=== PATIENT | female | born 1995 | race Caucasian/White ===

== ENCOUNTER 2022-04-09 09:53 | Outpatient (CLI) | payer BC, SELFPAY ==
[2022-04-10 13:43] LABS: Strep B DNA Probe NEGATIVE (Negative)
== END 2022-04-09 09:54 | disposition home or self-care (01) ==
PROVIDERS: Visit Provider Obstetrics & Gynecology
DX: O09.893 Supervision of other high risk pregnancies, third trimester (principal); Z3A.36 36 weeks gestation of pregnancy
CPT/HCPCS: 87081; 87653

== ENCOUNTER 2022-04-23 09:30 | Outpatient (CLI) | payer BC, SELFPAY ==
[2022-04-23 09:50] LABS: Hematocrit 40.5 % (33.0-51.0); Hemoglobin* 13.4 gm/dL (12.0-16.0); Mean Corpuscular HGB Conc 33 gm/dL (32-36); Mean Corpuscular Hemoglobin 28 pg (26-34); Mean Corpuscular Volume 85 fL (80-100); Platelet Count* 168 K/uL (140-440); Red Blood Count 4.79 m/uL (4.00-5.20); Slide Review Reflex No; White Blood Count* 6.46 K/uL (4.50-11.00)
[2022-04-23 10:37] LABS: Alanine Aminotransferase* 19 U/L (4-35); Aspartate Amino Transferase* 26 U/L (12-35)
[2022-04-23 10:38] LABS: Creatinine Urine 25.6 mg/dL; Total Protein Urine 18 mg/dL
[2022-04-23 13:44] LABS: Blood Urea Nitrogen* 10 mg/dL (5-24); Creatinine* 0.6 mg/dL (0.5-1.5); Estimated Glomerular Filt Rate 124.53
== END 2022-04-23 09:31 | disposition home or self-care (01) ==
PROVIDERS: Visit Provider Obstetrics & Gynecology
DX: Z34.93 Encounter for supervision of normal pregnancy, unspecified, third trimester (principal); Z3A.38 38 weeks gestation of pregnancy
CPT/HCPCS: 82565; 84156; 84450; 84460; 84520; 85027

== ENCOUNTER 2022-04-24 16:08 | Inpatient (IN) | payer BC, SELFPAY ==
[2022-04-24] VITALS (22 sets, daily range): BP systolic 112–135; BP diastolic 69–93; PULSE 68–105; RESP 16; TEMP 36.4–36.6; O2SAT 92–97
[2022-04-24 17:13] LABS: Hemoglobin* 13.6 gm/dL (12.0-16.0)
[2022-04-24] MEDS: LACTATED RINGERS 1000 ML 1,000 ML 125 ML IV ×4 (17:13→23:16)
--- NOTE | 2022-04-24 17:49 | PM.PROC ---
Procedure Note Time Seen by Provider: 17:50 Date Seen: 04/24/22 Provider Contact Time: 17:50 Date of procedure: 04/24/[address] [facility] bill your pro fee for this procedure?: Yes Procedure: Preoperative diagnosis: 27-year-old 2 para 1 at 38 and 3/7 weeks admitted for a repeat low transverse section. Mild preeclampsia Right ovarian mass noted on ultrasound Postoperative diagnosis: Same, right endometrioma Procedure: 1.Repeat low-transverse section. 2. Right ovarian cystectomy Anesthesia: Spinal and TAPS block Surgeon: Melody Perez MD Dining Services Manager: Not applicable Quantitative blood loss: 742 mL IVF: 2500 mL UOP: 75 mL Drain(s): Cardenas to gravity. Specimen: 1. Placenta due to mild preeclampsia. 2. Right ovarian cyst wall. Both sent to pathology. Findings: A live male infant was delivered from the direct OA position at 6:45 p.m. Apgars were 9 at 1 min and 9 at 5 min respectively. Infant weight: 8 lb 13 oz. Nuchal cord(s): No. The placenta was delivered spontaneously and complete at 6:47 p.m. Amniotic fluid: Clear. Normal uterus, fallopian tubes and left ovary. The right ovary had approximately 4 x 2 cm endometrioma. Procedure: Eliz was taken to the OR where spinal anesthetic was found be adequate. A Cardenas catheter was placed. The patient was then placed in the dorsal supine position with a leftward tilt. She was then prepped and draped in a normal sterile manner. A Pfannenstiel skin incision was made and carried through sharply to the underlying layer of fascia. Fascia was incised in the midline and this incision carried laterally with Barrera scissors. The superior aspect of fascial incision was grasped with Kimberly clamps, tented up, and the rectus muscles dissected off with a combination of blunt and sharp dissection. The inferior aspect of the fascial incision was grasped with Kimberly clamps, tented up and again the rectus muscles dissected off with a combination of blunt and sharp dissection. The rectus muscles were in the midline. The peritoneum was entered bluntly. This opening was extended bluntly. There were thick adhesions of the fascia to the subcutaneous tissue. No adhesions intra-abdominally. An Philip-O self-retaining retractor was placed. A bladder flap was not created. Uterus was incised in a low transverse manner in the midline. This incision carried laterally with blunt pressure on the inferior and superior aspects of the uterine incision. The amniotic sac was ruptured. The infant's head and body were delivered atraumatically. The infant was shown to the patient and her support person. The umbilical was clamped and cut after a 30-60 second delay. The was then handed to waiting pediatric and nursing staff. The placenta was delivered spontaneously. The uterus was cleared of clots and debris. The uterine incision was re-approximated with the uterus in vivo. The 1st layer using 0-Vicryl in a running, locked manner. The 2nd layer using 0-Monocryl in a running, vertical, imbricating layer. Additional sutures needed for hemostasis: No. Attention was then turned to performing the right ovarian cystectomy. The ovary was grasped with 2 Garrard clamps. The area of the ovarian tissue overlying the endometrioma was incised with bipolar cautery. Thick, dark brown, gelatinous contents of the cyst were removed. The cyst wall was grasped with a Jolanta clamp and the overlying ovarian tissue was grasped with a 2nd Jolanta clamp. The cyst was removed from the overlying ovarian tissue with blood pressure. The cyst wall was sent to pathology. The incision was reapproximated using 2 0 Vicryl in a running locked manner. There was a small extension/tear in the serosa of the ovary overlying the IP ligament that was reapproximated using 2-0 Vicryl in a running locked manner. Hemostasis was noted. Jean Pierre was applied to the area of the ovarian incision. Excellent hemostasis again noted. The ovary was returned to the pelvis. The uterine incision was again inspected and excellent hemostasis was confirmed. The Philip retractor was removed. The rectus muscles were not reapproximated. The rectus muscles were then closely inspected to verify hemostasis. Hemostasis was obtained with bipolar cautery. The fascia was then reapproximated using 0-Maxon loop in a running manner. The subcutaneous tissue was then irrigated with saline and hemostasis obtained with bipolar cautery. The subcutaneous tissue was reapproximated using 3-0 plain gut interrupted sutures. The skin was reapproximated using 4-0 Monocryl in a running subcuticular manner. Exofin skin adhesive and a Methaplex dressing were applied. The patient tolerated this procedure well. Sponge, lap and instrument counts were correct x2 active to the procedure. Patient was taken to the recovery area in stable condition. The patient received 2 g of IV Ancef prior to skin incision. Surgeon: Melody Perez MD Disposition: floor
[2022-04-24] MEDS: CEFAZOLIN 2 GM INJ IVP (18:20)
[2022-04-24 18:24] LABS: SARS PCR* Negative SARS-CoV-2 (Negative)
[2022-04-24] MEDS: KETOROLAC 30 MG/ML inj IVP (19:45)
--- NOTE | 2022-04-24 20:17 | W.ANESCHARGE ---
Anesthesia Charges Start Date/Time Anesthesia Start Date: 04/24/22 Anesthesia Start Time: 18:06 Stop Date/Time Anesthesia Stop Date: 04/24/22 Anesthesia Stop Time: 20:00 Summary Emergency: No
--- NOTE | 2022-04-24 20:18 | W.PM.NB ---
Nerve Block Nerve Block Time Seen by Provider: 19:50 Date Seen: 04/24/22 Type of block requested by surgeon for post-operative analgesia: TAP Side: bilateral Time out performed: Yes Verification of patient name: Yes Verification of date of : Yes Site marking: site marked Name of person performing procedure: Evans Charles Continuous monitoring Was continuous monitoring of O2 sat, B/P, manager cardiac cath, recorded every 15 minutes?: Yes Procedure Checklist: sterile prep, needles and gloves Ultrasound guided. Images saved: Yes Medications given in 5ml increments after negative aspiration: Marcaine %: 0.25 mL: 30 Needle gauge: 20 and Exparel mL: 10 Needle gauge: 20 Patient tolerated procedure well: Yes Additional comments: Injected in 5ml increments after negative aspiration
[2022-04-25] VITALS (31 sets, daily range): BP systolic 108–129; BP diastolic 73–84; PULSE 59–92; RESP 16; TEMP 35.5–36.8; O2SAT 95–99
[2022-04-25] MEDS: KETOROLAC 30 MG/ML inj IVP ×4 (01:49→20:00)
--- NOTE | 2022-04-25 07:26 | P.OBPN_ITS ---
OB - PN: A/P Assessment and Plan (1) care and examination immediately after delivery: Status: Acute (2) Status post repeat low transverse section: Status: Acute (3) Mild preeclampsia: Status: Acute (4) Lactating mother: Status: Acute Plan Plan: routine postop care OB - PN: Subj Subjective Date Seen: 04/25/22 Interval history: Eliz is a 27 yo at 38 4/7 weeks gestation who presented for repeat in the setting of preeclampsia without severe features on 04/24/2022. The patient feels well. The pain is well controlled with current medications. She has no new complaints. Urinary output is adequate and she is voiding without difficulty. Has a good appetite, is tolerating a general diet, is passing flatus, and has [] had a bowel movement. Has Small 10-25 ml amount of rubra lochia. She is ambulating well. Patient comments: no complaints, pain well controlled, incisional pain (minimal), tolerating diet and flatus present status: and doing well [place] feeding status: exclusively OB - PN: Obj Exam Physical Exam: Vital signs: Temp Pulse Resp BP Pulse Ox 97.5 F L 59 L 16 108/73 95 04/25/22 04:02 04/25/22 04:02 04/25/22 05:00 04/25/22 04:02 04/25/22 04:02 Constitutional: Constitutional: no acute distress and cooperative Routine Respiratory Exam: Respiratory: Present CTA bilaterally Routine Cardiovascular Exam: Cardiovascular: Present RRR Routine Abdominal Exam: Abdominal: Present soft Fundus: Present firm (u/u) Detailed Lower Extremity Exam: Lower leg: bilateral: swelling (+2) Routine Skin Exam: Skin: Present wounds (Incision) Routine Neurological Exam: Neurological: Present alert and oriented X3 Routine Psychiatric Exam: Psychiatric: Present normal affect Wound Management: Method: other Examination: Present dressed, clean, dry and intact Comments: Incision Urinary Catheter Management: Urethral: Cath placed during this visit: yes, but has since been removed by the nurse Urethral indwelling: No Reason for continuing: surgical procedure Insertion date: 04/24/22 Insertion time: 18:00 Removal date: 04/25/22 OB - PN: Obj Data Labs Labs: Laboratory Results - last 24 hr 04/24/22 04/24/22 16:48 17:06 Hgb 13.6 SARS-CoV-2 (PCR) Negative SARS-CoV-2
[2022-04-25 07:29] LABS: Hemoglobin* 14.7 gm/dL (12.0-16.0)
[2022-04-25] MEDS: SODIUM CHLORIDE 0.9 % (FLUSH) 10 ML SYRINGE IVF (07:57)
[2022-04-25] MEDS: DOCUSATE SODIUM 100 MG CAPSULE PO (09:06)
[2022-04-26] MEDS: KETOROLAC 30 MG/ML inj IVP (01:24)
[2022-04-26 04:45] VITALS: BP 115/69; PULSE 91; RESP 14; TEMP 36.7; O2SAT 99
[2022-04-26 07:50] VITALS: BP 121/83; PULSE 80; RESP 16; TEMP 36.6; O2SAT 97
[2022-04-26] MEDS: DOCUSATE SODIUM 100 MG CAPSULE PO (08:00)
--- NOTE | 2022-04-26 10:39 | P.DS_ITS ---
DS: Providers Provider Time Seen by Provider: 10:40 Date Seen: 04/26/22 Date of admission: 04/24/22 16:08 Primary care physician: Kyung Land MD Admitting Clinician: Melody Perez MD Attending Physician on discharge: Melody Perez MD Date of Discharge: 04/26/22 DS: Diagnosis Discharge Diagnosis (1) Status post repeat low transverse section: Status: Acute Problem details: Appropriate recovery. PPD1 hgb 13.6 (2) Status post ovarian cystectomy: Status: Acute (3) Endometrioma of ovary: Status: Acute (4) Lactating mother: Status: Acute Problem details: Son latching very well (5) Mild preeclampsia: Status: Acute Problem details: Asymptomatic DS: Medications Discharge Medications Other Medication Instructions: OTC ibuprofen, acetaminophen, vitamin. Has prior breastpump, and abdominal binder. Exam Const: Vital Signs, click to edit/add: Vital Signs - 24 hr 04/25/22 11:00 04/25/22 12:00 04/25/22 12:02 Temperature 97.6 F Pulse Rate Pulse Rate [Pulse Oximeter] 92 Respiratory Rate 16 16 16 Blood Pressure Blood Pressure [Ri ght Arm] 125/79 Pulse Oximetry 96 04/25/22 13:00 04/25/22 13:54 04/25/22 14:00 Temperature 98.1 F Pulse Rate Pulse Rate [Pulse Oximeter] Respiratory Rate 16 16 Blood Pressure Blood Pressure [Ri ght Arm] Pulse Oximetry 04/25/22 14:20 04/25/22 15:00 04/25/22 15:54 Temperature 98.3 F 98.3 F Pulse Rate Pulse Rate [Pulse Oximeter] 74 Respiratory Rate 16 16 Blood Pressure Blood Pressure [Ri ght Arm] 123/80 Pulse Oximetry 98 04/25/22 16:00 04/25/22 17:00 04/25/22 18:00 Temperature Pulse Rate Pulse Rate [Pulse Oximeter] Respiratory Rate 16 16 16 Blood Pressure Blood Pressure [Ri ght Arm] Pulse Oximetry 04/25/22 20:00 04/25/22 20:15 04/26/22 04:45 Temperature 98.0 F 98.0 F 98.0 F Pulse Rate Pulse Rate [Pulse Oximeter] 90 91 Respiratory Rate 16 14 Blood Pressure Blood Pressure [Ri ght Arm] 129/84 115/69 Pulse Oximetry 99 99 04/26/22 07:50 Temperature 97.9 F Pulse Rate 80 Pulse Rate [Pulse Oximeter] Respiratory Rate 16 Blood Pressure 121/83 Blood Pressure [Ri ght Arm] 121/83 Pulse Oximetry 97 Documenting provider has reviewed patient's vital signs: yes Common normals: no apparent distress, no limitations, healthy appearing, alert and well nourished General appearance: cooperative, comfortable and well kempt Resp: Common normals: normal respiratory effort and no use of accessory muscles Cardio: Common normals: regular rate and peripheral pulses 2+ throughout Rate: regular rate Peripheral pulses: pulses 2+ throughout GI: Common normals: soft to palpation (minimal generalized tenderness. Incision intact with skin glue, suture.) Palpation: soft (minimal generalized tenderness. Incision intact with skin glue, suture.) Other: Normal incisional induration; no surrounding erythema or ecchymosis. Extremity: Common normals: normal to inspection, full ROM and no calf tenderness Neuro: Common normals: CN's II-XII intact bilaterally and moves all extremities Sensorium/orientation: alert Psych: Common normals: thought process normal, cooperative and affect normal Appearance: well kempt Thought process: normal thought process OB - DS: Summary Hospital Course Hospital Course: Eliz is a 27 year old P 2003 who was admitted to the [facility] on 04/24/22 for elective repeat because of history gHTN, normal preeclamsia labs, but elevated BP at 38w3d. TOLAC contraindicated because of prior single-layer hysterotomy repair. She had an uncomplicated RLTCS under spinal, giving to viable vigorous male Dmitry. Additional ketamine anesthetia required during right ovarian cystectomy. Postop TAP block placed. the patient has done well. Eating regular diet, without N/V; normal bowel activity. Voiding normally. Lochia decreasing, without clots. Son is latching very well. Peripartum Data Procedures: Procedures Operation Date: 04/24/22 18:15 Actual Procedure Side Surgeon p Section with right ovarian cystectomy Not Applicable Melody Ryan MD complications: none Gender: Male Infant Discharge Plan: Home Status at Discharge Functional status at discharge: independent ambulation Overall status at discharge: patient is progressing back to baseline Time Spent with Patient Time attestation: Total time spent providing and/or coordinating discharge services: Time spent: Less than 30 minutes Discharge Plan Discharge Disposition: Home, Self-Care Date of Admission: 04/24/22 16:08 Attending Provider on Discharge: Amrik Alvarez Primary Care Provider: Kyung Land Condition: Stable Anticipated Discharge Date/Time: 04/27/22 11:00 Discharge Medications: New docusate sodium 100 mg Capsule 100 mg PO DAILY Qty: 100 0RF ibuprofen 600 mg Tablet 600 mg PO Q6H PRN (Reason: Pain) 14 Days Qty: 30 0RF oxycodone 5 mg Tablet 5 mg PO Q6H PRN (Reason: Pain) 7 Days Qty: 21 0RF Continued prenat.vits,yuriy,ndq-jomh-epvat Tablet 1 tab PO QDAY 0RF DHA 200 mg capsule 200 mg PO DAILY 0RF Discharge Orders: Discharge Order (Routine); Ordered 04/26/22 Ordered By: Amrik Alvarez Patient Education: (DC) Activity Restrictions/Additional Instructions: Discharge instructions were reviewed with the patient including signs and symptoms of infection and home going medications. Lifting Restrictions: 20 pounds for [address] while taking narcotic pain meds. Off Work or School for 8 weeks. Symptoms to report to doctor: -Bleeding that saturates more than one pad per hour ?-Passing clots larger than the size of a golf ball ?-Pain not relieved by prescribed medication ?-Fever above 100.4 degrees Fahrenheit ?-A foul vaginal odor ?-Difficulty in emotions, mood and functions ?-Thoughts of hurting yourself and/or ?-Painful, reddened area in your breast ?-Any drainage, redness or tenderness in your IV/epidural site ?-Severe headache that doesn't improve after taking medications ?-Changes in vision, including temporary loss of vision, blurred vision, and/or light sensitivity ?-Upper abdominal pain (usually under ribs on the right side) ?-Decrease in urination or painful, frequent urinating ?-Chest pain ?-Shortness of breath ?-Tenderness or pain with redness and/swelling in the calf(s) of your leg Follow Up with Melody Perez MD in 2 weeks for an incision check. Then for a exam in 6 weeks with any [facility] provider. consultation services are available to all mothers and babies for the first year after delivery.? To make an appointment, please call [phone]. Activity Level: Activity as Tolerated Discharge Diet: Regular Follow Up Appointments: Kyung Land MD [Primary Care Provider] - Forms: MyHealth Info Instructions
--- OUTSIDE RECORDS SUMMARY | 2022-05-20 13:01 | XMS_ITS | Continuity of Care Document ---
:1995 Author Organization [facility] Address [place] [id number] [facility] [place] [address]- Encounter 08/28/21 - 08/30/21 [facility] [address] [place] [id number]- Encounter Diagnosis Uterine fibroid (Discharge Diagnosis) - 08/28/21 Endometrioma of ovary (Discharge Diagnosis) - 08/28/21 Attending Physician: Jeannette García DO Allergies, Adverse Reactions, Alerts Substance Reaction Severity Status amoxicillin Rash Active Bee Stings Hives Active Assessment and Plan Extracted from: Title: Ultrasound follow-up Author: Jeannette García DO Date : 08/28/21 1.??Uterine fibroid??(D25.9) I reviewed at this time that she is com pletely asymptomatic.?? She has had no difficulty with??periods. ??At this time she is planning to come in for an additional ultrasound for confirmation of . 2.??Endometrioma of ovary??(N80.1) We reviewed??possible etiologies of a s olid??ovarian mass. ??At this time I do not recommend tumor markers that she is currently . ??We reviewed??possible removal however given her st atus I would wait until??6 to 8 weeks po stpartum. ??We reviewed the possibility of a borderline tumor or??cancer state.?? At a minimum we should repeat the ultrasound in 1 year. ??She will have more ult rasounds due to her state and we will continue??to monitor the solid mass closely.?? At this time??patient is completely asymptomatic. ??All questions??were answered. ?? Documentation completed in conjunction with voice recognition software and/or dictation. Unintended word substitutions or inaccuracies may occur. ? Danielle García DO ? Orders for this visit ?[id number] office o/p est low 2 0-29 min (Charge): Quantity: 1, Uterine fibroid Endometrioma of ovary. ?? Extracted from: Title: Summary Record Author: Kaye Navarro CMA Date: 03/15/20 FARZAD BAIN: 1995 Age: 25 Years 6 FARZAD BAIN: [birth year] Summary (Date of Report: 03/15) G 1 P 0 (0,0,0,0) Gestation: -- LMP: 06/17/2019 (from pt. history) KEILY: 03/23/2020 KEILY/EGA Method: Last Men strual Period EGA: 38 weeks 6 days FARZAD BAIN: [birth year] Risk Factors and Genetic Screening Risk Factors (Current ) Risk Factors: None Risk Factors Comments: -- Ethnic Screening Self, Baby's father: Genetic Disorders Screening No genetic disorders have been recorded . FARZAD BAIN : [birth year] Problems (Active Problems Only) (SNOMED CT: 480340446, Onset: 0 06/17/19) Sergio (SNOMED CT: 81285173, Onse t: --) Uterine leiomyoma (SNOMED CT: 342672683, Onset: --) FARZAD BAIN : [birth year] Visit Diagnosis (Note: All diag noses documented since 06/17/2019) 02/23/20 - 36 weeks gestation of pregnan cy (ICD-10-CM: Z3A.36, Date: 03/05/20) 02/23/20 - Gestational [-induce d] hypertension without significant proteinuria, unspecified trimester (ICD-10-CM: O13.9, Date: 02/23/20) 02/23/20 - 35 weeks gestation of pregnan cy (ICD-10-CM: Z3A.35, Date: 02/23/20) 02/23/20 - Encounter for immunization (I CD-10-CM: Z23, Date: 02/23/20) 02/21/20 - 37 weeks gestation of pregnan cy (ICD-10-CM: Z3A.37, Date: 02/26/20) 02/21/20 - Encounter for scree disha for Streptococcus B (ICD-10-CM: Z36.85, Date: 02/23/20) 02/21/20 - Gestational [-induce d] hypertension without significant proteinuria, unspecified trimester (ICD-10-CM: O13.9, Date: 02/23/20) 02/17/20 - 35 weeks gestation of pregnan cy (ICD-10-CM: Z3A.35, Date: 02/19/20) 02/17/20 - Gestational [-induce d] hypertension without significant proteinuria, third trimester (ICD-10-CM: O13.3, Date: 02/19/20) 02/17/20 - Leiomyoma of uterus, unspecif ied (ICD-10-CM: D25.9, Date: 02/19/20) 02/17/20 - Unspecified pre-existing hype rtension complicating , unspecified trimester (ICD-10-CM: O10.919, Date: 02/17/20) 02/16/20 - 34 weeks gestation of pregnan cy (ICD-10-CM: Z3A.34, Date: 02/22/20) 02/16/20 - Unspecified maternal hyperten ronnell, unspecified trimester (ICD-10-CM: O16.9, Date: 02/16/20) 02/02/20 - Encounter for supervision of normal first , third trimester (ICD-10-CM: Z34.03, Date: 02/04/20) 02/02/20 - Maternal care for benign tumo r of corpus uteri, unspecified trimester (ICD-10-CM: O34.10, Date: 02/04/20) 01/26/20 - Leiomyoma of uterus, unspecif ied (ICD-10-CM: D25.9, Date: 01/28/20) 01/05/20 - 37 weeks gestation of pregnan cy (ICD-10-CM: Z3A.37, Date: 03/01/20) 01/05/20 - Gestational [-induce d] hypertension without significant proteinuria, unspecified trimester (ICD-10-CM: O13.9, Date: 02/28/20) 01/05/20 - Leiomyoma of uterus, unspecif ied (ICD-10-CM: D25.9, Date: 01/05/20) 01/05/20 - Encounter for scree disha, unspecified (ICD-10-CM: Z36.9, Date: 01/05/20) 12/01/19 - Encounter for supervision of normal , unspecified, second trimester (ICD-10-CM: Z34.92, Date: 12/03/19) 12/01/19 - Encounter for scree disha, unspecified (ICD-10-CM: Z36.9, Date: 12/03/19) 11/11/19 - Encounter for follow-up exami nation after completed treatment for conditions other than malignant neoplasm (ICD-10-CM: Z09, Date: 12/01/19) 11/03/19 - Encounter for supervision of normal first , second trimester (ICD-10-CM: Z34.02, Date: 11/04/19) 11/03/19 - Encounter for scree disha, unspecified (ICD-10-CM: Z36.9, Date: 11/03/19) 10/13/19 - Encounter for supervision of normal , unspecified, unspecified trimester (ICD-10-CM: Z34.90, Date: 10/13/19) 09/15/19 - Encounter for supervision of normal first , first trimester (ICD-10-CM: Z34.01, Date: 09/19/19) 09/15/19 - Encounter for supervision of normal , unspecified, unspecified trimester (ICD-10-CM: Z34.90, Date: 09/15/19) 07/26/19 - Encounter for test, result positive (ICD-10-CM: Z32.01, Date: 08/01/19) 07/26/19 - Encounter for test, result unknown (ICD-10-CM: Z32.00, Date: 07/26/19) 07/24/19 - Encounter for test, result positive (ICD-10-CM: Z32.01, Date: 08/16/19) 06/23/19 - Sergio (ICD-10-CM: N94 .0, Date: 06/25/19) 06/23/19 - Encounter for procreative man agement, unspecified (ICD-10-CM: Z31.9, Date: 06/25/19) 06/23/19 - Encounter for general adult m edical examination without abnormal findings (ICD-10-CM: Z00.00, Date: 06/25/19) 06/23/19 - Encounter for screening for m alignant neoplasm of cervix (ICD-10-CM: Z12.4, Date: 06/23/19) 06/23/19 - Encounter for immunization (I CD-10-CM: Z23, Date: 06/23/19) FARZAD BAIN : [birth year] Antepartum Note Date: 02/28/20 13:53 (36 weeks) By: Jay Turner DO gestational htn with concerns about poss ible evolving preE. 2lb weight gain in 5 days. significant increase in protein to creatinine ratio. will start cervidil the night before planned induction to incr ease chances for success and shorten dari e pit's need Date: 02/23/20 14:55 (35 weeks) By: Jay Turner DO gestational htn. iol at [address] [facility] an d ptl discussed. preE precautions. preE labs today. nst- reactive. gbs today Date: 02/16/20 13:45 (34 weeks) By: Jay Turner DO elevated bp today. nst reactive. repeat bp tomorrow. preE labs today. Date: 02/02/20 11:55 (32 weeks) By: Jay Turner DO telehealth visit, audio/video. no compla ints. tdap next visit. u/s for growth at 36 weeks, dx fibroid uterus. fkc and ptl discussed Date: 01/05/20 16:32 (28 weeks) By: Jay Turner DO 1 hour gtt/cbc today. fkc and ptl discus sed. growth u/s for fibroid uterus next visit. Date: 12/01/19 14:04 (23 weeks) By: Jeannette Jiang DO Normal U/S Date: 11/03/19 14:44 (19 weeks) By: Jay Turner DO u/s reviewed. incomplete cardiac and fac e. small 4cm fibroid noted. poor images. repeat views with next u/s recommended. follow growth discussed. monitor bps Date: 10/13/19 13:18 (16 weeks) By: Jay Turner DO safe sleep and quickening discussed. wor k precautions discussed FARZAD BAIN : [birth year] Gestational Age (EGA) and KEILY * Note: EG A calculated as of 03/15/2020 KEILY: 03/23/2020 EGA*: 38 weeks 6 days Ty pe: Initial Method Date: 06/17/2019 Method: Last Menstrual Period (06/17/20 19) Confirmation: Possible Description: Normal Amount/Duration Comments: -- Entered by: Sandra Olson CMA on 07/12 Other KEILY Calculations for this Pregnanc y: No additional KEILY calculations have bee n recorded for this FARZAD BAIN: [birth year] Measurements Pre- Weight: 163 lb 02/23/20 (3 5 weeks) Recent Weight Measured: -- Height/Length Measured: -- Body Mass Index Measured: -- FARZAD BAIN: [birth year] Exam and Notes Date OMI Varela PTL S/S Cervix BP Weight Urine Baby cm Dil Eff(%) Sta mmHg lbs kg Gluc Prot FHR Activity Fet Pres 03/14/20 38w5d -- -- -- -- -- 130/82 -- -- -- -- -- -- 03/07/20 37w5d -- -- -- -- -- 140/96 -- -- -- -- -- -- 02/28/20 36w4d 38 -- 1 60% -2 146/84 *198... -- -- Baby = Present Cephalic 02/23/20 35w6d 36 None 1 60% -2 142/92 *196... -- -- Baby = 140bpm Present Cephalic 02/17/20 35w0d -- -- -- -- -- 140/94 *196... -- -- -- -- -- 02/16/20 34w6d 35 -- -- -- -- 140/90 *197... -- -- Baby = Present -- 02/02/20 32w6d -- -- -- -- -- -- -- -- -- Baby = Present -- 01/05/20 28w6d 28 None -- -- -- 120/78 *183... -- -- Baby = 147bpm Present -- 12/01/19w6d 24 -- -- -- -- 132/78 *174... -- -- Baby = 132bpm Present -- 11/03/19 19w6d 20 -- -- -- -- 138/76 *171... -- -- Baby = Present -- 10/13/19 16w6d 16 -- -- -- -- 138/83 *171... -- -- Baby = 152bpm Absent -- 09/15/19 12w6d -- -- -- -- -- 118/68 *164... -- -- -- -- -- 07/26/19 5w4d -- -- -- -- -- 130/82 *165... -- -- -- -- -- 06/23/19 0w6d -- -- -- -- -- 132/84 *163... -- -- -- -- -- * Weight 2020 198(lbs) 89.796(kg) 02/23/2020 196.6(lbs) 89.161(kg) 02/17/2020 196(lbs) 88.889(kg) 02/16/2020 197.2(lbs) 89.433(kg) 01/05/2020 183(lbs) 82.993(kg) 12/01/2019 174(lbs) 78.912(kg) 11/03/2019 171.4(lbs) 77.732(kg) 10/13/2019 171(lbs) 77.551(kg) 09/15/2019 164.6(lbs) 74.649(kg) 07/26/2019 165(lbs) 74.830(kg) 06/23/2019 163.4(lbs) 74.104(kg) FARZAD BAIN: [birth year] Physical Exams Physical Exam Extremities Edema Edema: 2+ mild/4mm (02/28/20) FARZAD BAIN: [birth year] Blood Types and Anti-D Immune Globulin Blood Type and Screen Mother ABO/Rh: -- Mother Antibody Screen: -- Father of Baby ABO/Rh: -- Father of Baby Antibody Screen: -- Anti-D Immune Globulin Rho(D) Initial Status: -- Rho(D) 28 Week Status: -- Rho(D) Dates Given: -- FARZAD BAIN : [birth year] Tests and Lab Results Results ending with 'TR' have been keyed in by the practice or interpreted manually. Result Date: Estimated weeks post pregna ncy onset will display next to actual result date. OB Initial Lab Grouping Test Result Date Ref Range Thinprep Report See report for details 06/23/19 (0 weeks) [facility] [place] [id number] [employer] assumes no resp onsibility for the accuracy of CPT codes provided which are for informational purposes only. CPT codes are payor specific and CPT coding is the sole responsibility of the billing entity. 06/23/19 (0 weeks) U Test Positive 07/26/19 (5 weeks) Antibody Screen NO ANTIBODIES DETECTED 09/15/19 (12 weeks) Varicella zoster IgG 2284.00 09/15/19 (12 weeks) Rubella IgG Ab 5.07 09/15/19 (12 weeks) Culture Urine See report for details 09/15/19 (12 weeks) Hep Bs Ag NON-REACTIVE 09/15/19 (12 weeks) (NONREACTIVE - NONREACTIVE) HIV Ag/Ab 4th Gen NON-REACTIVE 09/15/19 (12 weeks) (NONREACTIVE - NONREACTIVE) Culture Urine See report for details 01/05/20 (28 weeks) OB 8-20 Week Lab Grouping Test Result Date Ref Range UA Color YELLOW 09/15/19 (12 weeks) UA Clarity CLEAR 09/15/19 (12 weeks) Clear UA Ketones NEGATIVE 09/15/19 (12 weeks) Negative UA Leukocyte Esterase NEGATIVE 09/15/19 (12 weeks) Negative UA Blood NEGATIVE 09/15/19 (12 weeks) Negative UA Protein NEGATIVE 09/15/19 (12 weeks) Negative UA Urobilinogen 0.2 09/15/19 (12 weeks) (0.2 - 1.0 E.U./dl) UA pH 5.5 09/15/19 (12 weeks) (5.0 - 7.5) UA Bilirubin NEGATIVE 09/15/19 (12 weeks) Negative UA Specific [place] 1.025 09/15/19 (12 weeks) (1.005 - 1.030) UA Glucose NEGATIVE 09/15/19 (12 weeks) Negative UA Nitrite NEGATIVE 09/15/19 (12 weeks) Negative MCHC 35.2 gm/dL 09/15/19 (12 weeks) (32.0 - 36.0) MCH 29.1 pg 09/15/19 (12 weeks) (27.0 - 33.0) Hgb 14.1 gm/dL 09/15/19 (12 weeks) (11.7 - 15.5) Hct 40.1 % 09/15/19 (12 weeks) (35.0 - 45.0) Lymphocytes 15.4 % 09/15/19 (12 weeks) Rh Type RH(D) POSITIVE 09/15/19 (12 weeks) ABO Group A 09/15/19 (12 weeks) Plt ct 210 09/15/19 (12 weeks) (140 - 400) Neutrophils 75.4 % 09/15/19 (12 weeks) Abs Basophils 28 09/15/19 (12 weeks) (0 - 200) Abs Eosinophils 117 09/15/19 (12 weeks) (15 - 500) Abs Monocytes 490 09/15/19 (12 weeks) (200 - 950) Abs Lymphocytes 1063 09/15/19 (12 weeks) (850 - 3900) Abs Neutrophils 5203 09/15/19 (12 weeks) (1500 - 7800) Basophils 0.4 % 09/15/19 (12 weeks) Eosinophils 1.7 % 09/15/19 (12 weeks) Monocytes 7.1 % 09/15/19 (12 weeks) RPR (Monitor) W/ Refl Titer NON-REACTIVE 09/15/19 (12 weeks) (NONREACTIVE - NONREACTIVE) WBC 6.9 09/15/19 (12 weeks) (3.8 - 10.8) RDW 13.0 % 09/15/19 (12 weeks) (11.0 - 15.0) RBC 4.84 09/15/19 (12 weeks) (3.80 - 5.10) MPV 11.1 fL 09/15/19 (12 weeks) (7.5 - 12.5) MCV 82.9 fL 09/15/19 (12 weeks) (80.0 - 100.0) Chlam/N. gonorrhea Comments See comment 09/15/19 (12 weeks) Neisseria gonorrhoeae RNA NOT DETECTED 09/15/19 (12 weeks) NOT DETECTED Chlamydia RNA NOT DETECTED 09/15/19 (12 weeks) NOT DETECTED Hep C Ab NON-REACTIVE 09/15/19 (12 weeks) (NONREACTIVE - NONREACTIVE) Hep C Signal to Cutoff 0.01 09/15/19 (12 weeks) <1.00 Ultrasound Report See report for details 12/01/19 (23 weeks) OB 20-28 Week Lab Grouping Test Result Date Ref Range Eosinophils 0.08 01/05/20 (28 weeks) (0.00 - 0.50) RDW CV 11.9 % 01/05/20 (28 weeks) (11.5 - 15.0) Monocytes 0.54 01/05/20 (28 weeks) (0.00 - 1.00) Lymphocytes 1.04 01/05/20 (28 weeks) (1.00 - 3.40) Hgb 13.9 gm/dL 01/05/20 (28 weeks) (11.7 - 15.5) MCH 29.3 pg 01/05/20 (28 weeks) (27.0 - 34.0) WBC 6.64 K/mcL 01/05/20 (28 weeks) (4.10 - 10.90) Lymphocytes % 15.7 %L 01/05/20 (28 weeks) (12.0 - 50.0) Neutrophils % 74.5 % 01/05/20 (28 weeks) (39.0 - 78.0) Basophils % 0.2 % 01/05/20 (28 weeks) (0.0 - 1.0) MCHC 34.8 gm/dL 01/05/20 (28 weeks) (32.0 - 36.0) Basophils 0.01 01/05/20 (28 weeks) (0.00 - 0.20) Eosinophils % 1.2 % 01/05/20 (28 weeks) (0.0 - 8.0) RBC 4.74 M/uL 01/05/20 (28 weeks) (3.85 - 5.05) Hct 40.0 % 01/05/20 (28 weeks) (35.0 - 46.0) Platelet 182 K/mcL 01/05/20 (28 weeks) (175 - 450) Neutrophils 4.95 K/mcL 01/05/20 (28 weeks) (1.90 - 8.10) MCV 84 fL 01/05/20 (28 weeks) (82 - 99) Monocytes % 8.1 % 01/05/20 (28 weeks) (4.0 - 12.0) Glucose Gestational 1 Hr 90 mg/dL 01/05/20 ( weeks) (64 - 139) OB 28-36 Week Lab Grouping Test Result Date Ref Range Hct 37.5 % 02/16/20 (34 weeks) (35.0 - 46.0) Hgb 13.2 gm/dL 02/16/20 (34 weeks) (11.7 - 15.5) MCH 29.3 pg 02/16/20 (34 weeks) (27.0 - 34.0) MCHC 35.2 gm/dL 02/16/20 (34 weeks) (32.0 - 36.0) MCV 83 fL 02/16/20 (34 weeks) (82 - 99) Platelet (L) 161 K/mcL 02/16/20 (34 weeks) (175 - 450) RBC 4.51 M/uL 02/16/20 (34 weeks) (3.85 - 5.05) WBC 7.30 K/mcL 02/16/20 (34 weeks) (4.10 - 10.90) Lymphocytes 1.19 02/16/20 (34 weeks) (1.00 - 3.40) Monocytes 0.55 02/16/20 (34 weeks) (0.00 - 1.00) Eosinophils 0.07 02/16/20 (34 weeks) (0.00 - 0.50) Basophils 0.02 02/16/20 (34 weeks) (0.00 - 0.20) Neutrophils 5.46 K/mcL 02/16/20 (34 weeks) (1.90 - 8.10) RDW CV 12.1 % 02/16/20 (34 weeks) (11.5 - 15.0) Lymphocytes % 16.3 %L 02/16/20 (34 weeks) (12.0 - 50.0) Eosinophils % 1.0 % 02/16/20 (34 weeks) (0.0 - 8.0) Basophils % 0.3 % 02/16/20 (34 weeks) (0.0 - 1.0) Neutrophils % 74.8 % 02/16/20 (34 weeks) (39.0 - 78.0) Monocytes % 7.5 % 02/16/20 (34 weeks) (4.0 - 12.0) Uric Acid 3.5 mg/dL 02/16/20 (34 weeks) (2.5 - 6.2) BUN 9 mg/dL 02/16/20 (34 weeks) (7 - 19) AST 28 unit/L 02/16/20 (34 weeks) (14 - 36) eGFR Above 60 mL/min/1.73 m2 02/16/20 (34 weeks) Creatinine Level (L) 0.6 mg/dL 02/16/20 (34 weeks) (0.7 - 1.4) ALT 23 unit/L 02/16/20 (34 weeks) <35 Misc Test Sendout See Lab Report 02/16/20 (34 weeks) MCHC 35.1 gm/dL 02/23/20 (35 weeks) (32.0 - 36.0) MCV 84 fL 02/23/20 (35 weeks) (82 - 99) Platelet 187 K/mcL 02/23/20 (35 weeks) (175 - 450) RBC 4.61 M/uL 02/23/20 (35 weeks) (3.85 - 5.05) Lymphocytes % 14.5 %L 02/23/20 (35 weeks) (12.0 - 50.0) WBC 7.84 K/mcL 02/23/20 (35 weeks) (4.10 - 10.90) Lymphocytes 1.14 02/23/20 (35 weeks) (1.00 - 3.40) Monocytes 0.55 02/23/20 (35 weeks) (0.00 - 1.00) Eosinophils 0.06 02/23/20 (35 weeks) (0.00 - 0.50) Basophils 0.01 02/23/20 (35 weeks) (0.00 - 0.20) Neutrophils 6.06 K/mcL 02/23/20 (35 weeks) (1.90 - 8.10) MCH 29.3 pg 02/23/20 (35 weeks) (27.0 - 34.0) Hgb 13.5 gm/dL 02/23/20 (35 weeks) (11.7 - 15.5) Hct 38.5 % 02/23/20 (35 weeks) (35.0 - 46.0) Eosinophils % 0.8 % 02/23/20 (35 weeks) (0.0 - 8.0) Basophils % 0.1 % 02/23/20 (35 weeks) (0.0 - 1.0) Neutrophils % 77.3 % 02/23/20 (35 weeks) (39.0 - 78.0) RDW CV 12.2 % 02/23/20 (35 weeks) (11.5 - 15.0) Monocytes % 7.0 % 02/23/20 (35 weeks) (4.0 - 12.0) BUN 10 mg/dL 02/23/20 ( weeks) (7 - 19) eGFR Above 60 mL/min/1.73 m2 02/23/20 (35 weeks) Creatinine Level (L) 0.5 mg/dL 02/23/20 (35 weeks) (0.7 - 1.4) Uric Acid 3.8 mg/dL 02/23/20 (35 weeks) (2.5 - 6.2) AST 29 unit/L 02/23/20 (35 weeks) (14 - 36) ALT 26 unit/L 02/23/20 (35 weeks) <35 U Protein/Creatinine Ratio (H) 237 02/23/20 (35 weeks) (21 - 161) U Protein/Creatinine Ratio (H) 0.237 02/23/20 (35 weeks) (0.021 - 0.161) U Creatinine 38 mg/dL 02/23/20 (35 weeks) (20 - 275) U Protein 9 mg/dL 02/23/20 (35 weeks) (5 - 24) Culture Strep B DNA (A) DETECTED 02/23/20 (35 weeks) NOT DETECTED Culture Source *VAG 02/23/20 (35 weeks) Aerobic Susceptibility (A) See comment 02/23/20 (35 weeks) Creatinine TR 0.64 mg/dL 03/02/20 (37 weeks) FARZAD BAIN DOB: [birth year] Allergies (Active and Proposed Allergies Only) Bee Stings (Severity: Unknown severity, Onset: Unknown) Reactions: Hives amoxicillin (Severity: Unknown severity, Onset: Unknown) Reactions: Rash FARZAD BAIN DOB: [birth year] Medications Prescriptions and Home Medications Currently Active or Taking Multivitamins (Historically re corded) SIG: Oral, daily, 0 Refill(s) Ordered: 07/26/19 Provider: -- Inactive or Suspended (Prescriptions an d documented medications since 03/17/19) clotrimazole 1% topical cream SI yaritza, Topical, bid, Apply thin fi lm to affected area BID until resolved, 30 gm, 0 Refill(s) Status: Discontinued Ordered: 12/24/19 Provider: Dora Hernández DO Medication Administrations In-Office/Hos pital (All in-office/hospital administrated medications ordered since 03/17/19) Boostrix (Tdap) (tetanus/diphth/pertuss (Tdap) adult/adol) 0.5 mL, im, once Status: Completed Ordered: 02/23/20 Pro vider: Jay Velazco DO Fluarix PF Quadrivalent [id number] (infl uenza virus vaccine, inactivated) 0.5 mL, IM, once Status: Completed Ordered: 06/23/19 Pro vider: Jay Velazco DO FARZAD BAIN: 93 Immunizations influenza virus vaccine, inactivated 09/29 (0 weeks) tetanus/diphth/pertuss (Tdap) adult/adol 02/23/20 (35 weeks) FARZAD BAIN: 93 Menstrual History Last Recorded Menstrual Period: 06/17/20 19 Last Menstrual Period Description: Naheed l amount/duration Menarche Onset: 12 year(s) Menarche Frequency: 26 day(s) Menarche Length: 5 days Date of Menses Prior to LMP: -- On Hormonal Contracept within 2 months o f LMP: -- Date of Home Test: -- Comments: -- FARZAD BAIN: 93 History (0,0,0,0) No previous pregnancies history have be en recorded FARZAD BAIN: 93 Medical History Past Medical History No active past medical history has been recorded Family History Mother (Name not documented, Alive) Hypertension Father (Name not documented, Alive) Heart Sister (Name not documented, Alive) Brother (Name not documented, Alive) Procedure or Surgical History section Age: 25 Years Date: 03/03/2020 Knee Age: 17 Years Date: 2011 Comment: right (Sandra Olson CMA on 09/15/19) Shoulder Age: 14 Years Date: 2008 Comment: right shoulder (Maci Olson CMA on 09/15/19) FARZAD BAIN: [birth year] Social & Psychosocial History Social History Alcohol Current Current Comment: 1x/month (07/22/2019 16:57 - W Sandra lafleur CMA) Tobacco Denies Tobacco Use Never (less than 100 in lifetime) Substance Abuse Denies Substance Abuse Never Employment and Education Employed Comment: [employer] ( 16:57 - Sandra Olson CMA) Home and Environment Marital status: (Living [facility]). Comment: Payam Bain (07/22/2019 16:57 - Sandra Olson CMA) Exercise and Physical Activity Regular exercise Exercise frequency: 3-4 times/week. Comment: Running (07/22/2019 16:57 - Sandra Campbell CMA) Sexual Sexually active: Yes. Identifies as fem hien, Sexual orientation: Straight or heterosexual. Psychosocial History No active psychosocial history has been recorded FARZAD BAIN: 93 Infection History Infection history negative or not recor ded FARZAD BAIN: 93 Anesthesia and Transfusions Prior Anesthesia or Transfusion Received : Prior general anesthesia Prior Anesthesia Reaction(s): -- Prior Transfusion Reaction(s): -- Blood Transfusion Acceptable to Patient: Yes FARZAD BAIN: 93 Plan and Patient Requests Education Requested: -- Written Plan: -- Written Plan Location: -- Oral Intake: -- Planned Method of Delivery: -- Transportation to Delivery Location: -- Labor Preferences: -- Non-Medicinal Pain Relief: -- Anesthesia/Pain Medication During Labor: -- Delivery Plan/Summary: -- Infant Feeding: -- Circumcision: -- Baby For Adoption: -- Surrogate : -- [place] Provider Selected: -- Patient Requests: -- Support Person's Name: -- Support Person's Relationship to Patient : -- FARZAD BAIN : 93 Education Educational Materials/Leaflets Provided Title/Topic Date Provided Second Trimester of ,16-20 week s 10/13/19 Patient Education Activity Expectations -- Bladder/Bowel Function -- Breast Care -- Contact Health Care Provider -- Cramps -- Diagnostic Results -- Equipment/Devices -- Incision/Episiotomy Care -- Lochia Changes -- Med Generic/Brand Name,Purpose,Action -- Medication Dosage, Route, Scheduling -- Medication Precautions -- Nutrition Counseling -- Pain Management -- Perineal Care -- Plan of Care -- Postoperative Instructions -- Preoperative Instructions -- Preparing Formula -- Room Orientation -- Safety -- Safety, Fall -- Sibling/Family Adjustment -- Sitz Bath -- Surgery -- Treatments/Procedures/Tests -- Unit Procedures -- Vaginal Discharge -- FARZAD BAIN : 93 Registration and Information Race: White Ethnicity: Not or Marital Status: Language(s): Colombian Mandaen Preference(s): -- Occupation/Education: See social histor y above if documented. Address, Phone, and Health Plans Home Address: [address] [place] [address] Phone: --, , -- Health Plans: 1 - [employer] Member/Group: [id number] Deductible: $ -- Type: Other Address: [address] [address], [place], [place] [address] Phone: -- General Information OB Provider(s) Information: Not explici tly recorded. May be noted in encounter section below. See below for detailed information fo r all visits and information. Delivery Center/Hospital Information: - - [facility] Provider Information: -- Referring Provider Information: -- Primary Provider Information: /Partner Information: -- -- Support Person Information: -- Planned/Unplanned : -- Date Consent Signed for Tubal Ligation: -- Date Record Sent to Hospital: -- FARZAD BAIN : 93 Visits and Encounters (Known en counters since 06/17/2019. May include lab encounters.) Date Location Provider Type Medical Serv ice 2020 [facility] DO, Jay Outpatient -- 2020 [facility] Outpatient -- 02/23/2020 Jay Butler DO Outpatient -- 02/21/2020 Steven [facility], [facility] Outpatient -- 02/17/2020 Maci Melendez DO Outpatient -- 02/16/2020 Steven Velazco DO, Jay Outpatient -- 02/02/2020 Steven Velazco DO, Jay Outpatient -- 01/26/2020 [facility], [facility] Outpatient -- 01/05/2020 Steven Jones -- Between Visit -- 01/05/2020 Jay Butler DO Outpatient -- 12/23/2019 [facility] -- Between Visit -- 12/23/2019 [facility] -- Between Visit -- 12/01/2019 [facility] Ricky Garcia, Jeannette Outpatient -- 12/01/2019 [facility] Jessica -NO, [facility] Outpatient -- 11/11/2019 [facility] -- Between Visit -- 11/03/2019 Steven Velazco DO, aJy Outpatient -- 11/03/2019 [facility] Jessica -NO, [facility] Outpatient -- 10/13/2019 [facility] Mora GUZMAN, Jay Outpatient -- 09/20/2019 [facility] -- Between Visit -- 09/15/2019 [facility] Mora GUZMAN, Jay Outpatient -- 08/18/2019 [facility] Jessica -NO, [facility] Outpatient -- 08/18/2019 -- Outpatient -- 07/26/2019 Steven Velazco DO, Jay Outpatient Lab 07/26/2019 [facility] DO, Jay Outpatient -- 07/24/2019 [facility] -- Between Visit -- 06/23/2019 Steven Vel[facility]co DO, Jay Outpatient Lab 06/23/2019 [facility] Mora GUZMAN, Jay Outpatient -- FARZAD BAIN : [birth year] Visit / Encounter Location Information The following information represents davy guy location and contact information for locations visited during [facility] Business Address: [address] [place] [address] ([employer]), (Fax [employer]) Note: Items documented with '--' had no clinical data which qualified at time of report creation END OF REPORT Immunizations Given and Recorded Vaccine Date Status Refusal Reason influenza virus vaccine, inactivated 07/04/20 Given influenza virus vaccine, inactivated 06/23/19 Given tetanus/diphth/pertuss (Tdap) adult/adol 02/23/20 Given Medications clotrimazole 1% topical cream 1 yaritza, Topical, bid, Instructions: Apply thin film to affected area BID until resolved, # 30 gm, 0 Refill(s), Type: Acute, Pharmacy: [id number], 1 yaritza Topical bid,Instr:Apply thin filmto affected area BID until resolved Start Date: 12/24/19 Stop Date: 02/28/20 Status: DiscontinuedPrenatal Multivitamins Oral, daily, 0 Refill(s), Type: Maintenance Start Date: 07/26/19 Status: Ordered Problem List Condition Effective Dates Status Health Status Informant Ovulation pain(Confirmed) Active Uterine fibroid in Active (Confirmed) Diagnosis Diagnosis Type Effective Dates [facility] Service Uterine fibroid Discharge 08/28/21 Diagnosis Endometrioma of Discharge 08/28/21 ovary Diagnosis Procedures Procedure Date Related Diagnosis Body Site Status section 03/03/20 Completed Knee1 2011 Completed Shoulder2 2008 Completed [id number] shoulder Vital Signs Most recent to oldest [Reference Range]: 1 Height Measured 69 in (08/28/21 1:06 PM) Allergies Verified? Yes (08/28/21 1:06 PM) Medication History Verified? Yes (08/28/21 1:06 PM) Medical History Verified? Yes (08/28/21 1:06 PM) Social History Social History Type Response Smoking Status Never smoker Sex
--- OUTSIDE RECORDS SUMMARY | 2022-05-20 13:01 | XMS_ITS | Continuity of Care Document ---
:1995 Author Organization [facility] Address [facility] [address] [place] [address]- Encounter 04/01/21 - 04/03/21 [facility] [address] [place] [address]- Allergies, Adverse Reactions, Alerts Substance Reaction Severity Status amoxicillin Rash Active Bee Stings Hives Active Assessment and Plan Extracted from: Title: Summary Record Author: Kyae Navarro CMA Date: 03/15/20 FARZAD BAIN : 1995 Age: 25 Years 6 FARZAD BAIN : [birth year] Summary (Date of Report: 03/15) G 1 P 0 (0,0,0,0) Gestation: -- LMP: 06/17/2019 (from pt. history) KEILY: 03/23/2020 KIELY/EGA Method: Last Men strual Period EGA: 38 weeks 6 days FARZAD BAIN: [birth year] Risk Factors and Genetic Screening Risk Factors (Current ) Risk Factors: None Risk Factors Comments: -- Ethnic Screening Self, Baby's father: Genetic Disorders Screening No genetic disorders have been recorded . FARZAD BAIN: [birth year] Problems (Active Problems Only) (SNOMED CT: 830035349, Onset: 0 06/17/19) Sergio (SNOMED CT: 27849685, Onse t: --) Uterine leiomyoma (SNOMED CT: 012638644, Onset: --) FARZAD BAIN: [birth year] Visit Diagnosis (Note: All diag noses [...] Z3A.37, Date: 02/26/20) 02/21/20 - Encounter for screerum gauthier for Streptococcus B (ICD-10-CM: Z36.85, Date: 02/23/20) [...] 12/03/19) 11/11/19 - Encounter for follow-up exam[facility] after completed treatment for conditions other than [...] (I CD-10-CM: Z23, Date: 06/23/19) FARZAD BAIN DOB: [birth year] Antepartum Note Date: 02/28/20 13:53 (36 [...] DO gestational htn. iol at 37 weeks. fkc an d ptl discussed. preE precautions. preE [...] quickening discussed. wor k precautions discussed FARZAD BAIN: [birth year] Gestational Age (EGA) and KEILY * [...] FARZAD BAIN: [birth year] Exam and Notes Date EGA FunHt PTL S/S Cervix BP Weight Urine Baby [...] -- -- Baby = 132bpm Present -- 11/03/196d 20 -- -- -- -- 138/76 *171... [...] Status: -- Rho(D) Dates Given: -- FARZAD BAIN: [birth year] Tests and Lab Results Results ending with 'TR' have been keyed in by the practice or interpreted manually. Result Date: Estimated weeks post pregna ncy onset will display next to actual result date. OB Initial Lab Grouping Test Result Date Ref Range Thinprep Report See report for details 06/23/19 (0 weeks) [facility] [place] [id number] [place] assumes no resp onsibility for the accuracy [...] NEGATIVE 09/15/19 (12 weeks) Negative UA Specific [place] 1.025 09/15/19 (12 weeks) (1.005 - 1.030) [...] - 50.0) Neutrophils % 74.5 % 01/05/20 ( weeks) (39.0 - 78.0) Basophils % 0.2 % 01/05/20 ( weeks) (0.0 - 1.0) MCHC 34.8 gm/dL 01/05/20 ( weeks) (32.0 - 36.0) Basophils 0.01 01/05/20 ( weeks) (0.00 - 0.20) Eosinophils % 1.2 % 01/05/20 ( weeks) (0.0 - 8.0) RBC 4.74 M/uL 01/05/20 ( weeks) (3.85 - 5.05) Hct 40.0 % 01/05/20 ( weeks) (35.0 - 46.0) Platelet 182 K/mcL 01/05/20 ( weeks) (175 - 450) Neutrophils 4.95 K/mcL 01/05/20 ( weeks) (1.90 - 8.10) MCV 84 fL 01/05/20 ( weeks) (82 - 99) Monocytes % 8.1 % 01/05/20 ( weeks) (4.0 - 12.0) Glucose Gestational 1 [...] ALT 23 unit/L 02/16/20 (34 weeks) <35 [facility] See Lab Report 02/16/20 (34 [...] (4.0 - 12.0) BUN 10 mg/dL 02/23/20 (35 weeks) (7 - 19) eGFR Above 60 [...] TR 0.64 mg/dL 03/02/20 (37 weeks) FARZAD BAIN: [birth year] Allergies (Active and Proposed Allergies Only) Bee Stings (Severity: Unknown severity, Onset: Unknown) Reactions: Hives amoxicillin (Severity: Unknown severity, Onset: Unknown) Reactions: Rash FARZAD BAIN: [birth year] Medications Prescriptions and Home Medications Currently [...] vider: Jay Velazco DO Fluarix PF Quadrivalent (infl uenza virus vaccine, inactivated) 0.5 mL, IM, once Status: Completed Ordered: 06/23/19 Pro vider: Jay Velazco DO FARZAD BAIN DOB: [birth year] Immunizations influenza virus vaccine, inactivated 09/29 [...] 14 Years Date: 2008 Comment: right shoulder (RockdaleMaci rangel CMA on 09/15/19) FARZAD BAIN : [birth year] Social & Psychosocial History Social History Alcohol Current Current Comment: 1x/month (07/22/2019 16:57 - W Sandra lafleur CMA) Tobacco Denies Tobacco Use Never (less than 100 in lifetime) Substance Abuse Denies Substance Abuse Never Employment and Education 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 Comment: Payam Bain (07/22/2019 16:57 - Sandra [...] Baby For Adoption: -- Surrogate : -- Provider Selected: -- Patient Requests: -- Support Person's Name: -- Support Person's Relationship to Patient : -- FARZAD BAIN: [birth year] Education Educational Materials/Leaflets Provided Title/Topic Date [...] White Ethnicity: Not or Marital Status: Language(s): Divehi Jewish Preference(s): -- Occupation/Education: See social histor y above if documented. Address, Phone, and Health Plans Home Address: [address] [place] [address] Phone: --, , -- Health Plans: [employer] Member/Group: [id number] Deductible: $ -- Type: Other Address: [facility] [address], [place] [address] 4 Phone: -- General Information OB Provider(s) Information: Not explici tly recorded. May be noted in encounter section below. See below for detailed information fo r all visits and information. Delivery Center/Hospital Information: - - [place] Provider Information: -- Referring Provider Information: -- Primary Provider Information: /Partner Information: -- -- Support Person Information: -- Planned/Unplanned : -- Date Consent Signed for Tubal Ligation: -- Date Record Sent to Hospital: -- FARZAD BAIN : [birth year] Visits and Encounters (Known en counters since 06/17/2019. May include lab encounters.) Date Location Provider Type Medical Serv ice 2020 Jay Butler DO Outpatient -- 2020 [facility] -- 02/23/2020 Jay Butler DO Outpatient -- 02/21/2020 [facility] Jessica -NO, [facility] Outpatient -- 02/17/2020 Steven Hernández DO, Maci morgan Outpatient -- 02/16/2020 Steven Vel[facility]co DO, Jay Outpatient -- 02/02/2020 Steven [facility] DO, Jay Outpatient -- 01/26/2020 [facility] Jessica -NO, [facility] Outpatient -- 01/05/2020 [facility] -- Between Visit -- 01/05/2020 Steven Velazco DO, Jay Outpatient -- 12/23/2019 [facility] -- Between Visit -- 12/23/2019 [facility] -- Between Visit -- 12/01/2019 [facility] Ricky Garcia, Jeannette Outpatient -- 12/01/2019 [facility] Jessica -NO, [facility] Outpatient -- 11/11/2019 [facility] -- Between Visit -- 11/03/2019 Steven Velazco DO, Jay Outpatient -- 11/03/2019 Steven Lopez -NO, [facility] Outpatient -- 10/13/2019 Steven Velazco DO, Jay Outpatient -- 09/20/2019 [facility] -- Between Visit -- 09/15/2019 Steven Velazco DO, Jay Outpatient -- 08/18/2019 Steven Lopez -NO, [facility] Outpatient -- 08/18/2019 -- Outpatient -- 07/26/2019 Steven Velazco DO, Jay Outpatient Lab 07/26/2019 Steven Vel[facility]co DO, Jay Outpatient -- 07/24/2019 [facility] -- Between Visit -- 06/23/2019 Steven Vel[facility]co DO, Jay Outpatient Lab 06/23/2019 Steven [facility] DO, Jay Outpatient -- FARZAD BAIN : [birth year] Visit / Encounter Location Information The following information represents davy guy location and contact information for locations visited during [facility] Address: [address] [place] [address] ([employer]), ([employer] Note: Items documented with '--' had no [...] 30 gm, 0 Refill(s), Type: Acute, Pharmacy: [facility] #[id number], 1 yaritza Topical bid,Instr:Apply thin filmto affected area BID until resolved Start Date: 12/24/19 Stop Date: 02/28/20 Status: DiscontinuedPrenatal Multivitamins Oral, daily, 0 Refill(s), Type: Maintenance Start Date: 07/26/19 Status: Ordered Problem List Condition Effective Dates Status Health Status Informant Ovulation pain(Confirmed) Active Uterine fibroid in Active (Confirmed) Procedures Procedure Date Related Diagnosis Body Site Status section 5/23/20 Completed Knee1 2011 Completed Shoulder2 2008 Completed [id number] shoulder Social History Social History Type Response Smoking Status Never smoker Sex
--- OUTSIDE RECORDS SUMMARY | 2022-05-20 13:02 | XMS_ITS | Continuity of Care Document ---
:1995 Author Organization [facility] Address [facility] [email or web address] [address] [place] [address]- Encounter 03/06/21 - 03/08/21 [facility] [address] [place] [address]- Encounter Diagnosis Annual physical exam (Discharge Diagnosis) - 03/06/21 Uterine fibroid (Discharge Diagnosis) - 03/06/21 Attending Physician: Jeannette García DO Allergies, Adverse Reactions, Alerts Substance Reaction Severity Status amoxicillin Rash Active Bee Stings Hives Active Assessment and Plan Extracted from: Title: Summary Record Author: Kaye Navarro CMA Date: 03/15/20 FARZAD GONZALEZ : 1995 Age: 25 Years 6 FARZAD GONZALEZ : [birth year] Summary (Date of Report: 03/15) G 1 P 0 (0,0,0,0) Gestation: -- LMP: 06/17/2019 (from pt. history) KEILY: 03/23/2020 KEILY/EGA Method: Last Men strual Period EGA: 38 weeks 6 days FARZAD GONZALEZ : [birth year] Risk Factors and Genetic Screening Risk Factors (Current ) Risk Factors: None Risk Factors Comments: -- Ethnic Screening Self, Baby's father: Genetic Disorders Screening No genetic disorders have been recorded . FARZAD GONZALEZ : [birth year] Problems (Active Problems Only) (SNOMED CT: 368038691, Onset: 0 06/17/19) Sergio (SNOMED CT: 55250430, Onse t: --) Uterine leiomyoma (SNOMED CT: 573345730, Onset: --) FARZAD GONZALEZ : [birth year] Visit Diagnosis (Note: All diag [...] Z3A.37, Date: 02/26/20) 02/21/20 - Encounter for stan gauthier for Streptococcus B (ICD-10-CM: Z36.85, Date: [...] 12/03/19) 11/11/19 - Encounter for follow-up exami [facility] after completed treatment for conditions other than [...] for immunization (I CD-10-CM: Z23, Date: 06/23/19) MARU GONZALEZNA M : [birth year] Antepartum Note Date: 02/28/20 13:53 [...] quickening discussed. wor k precautions discussed FARZAD GONZALEZ : [birth year] Gestational Age (EGA) and KEILY [...] have bee n recorded for this FARZAD GONZALEZ : [birth year] Measurements Pre- Weight: 163 lb 02/23/20 (3 5 weeks) Recent Weight Measured: -- Height/Length Measured: -- Body Mass Index Measured: -- FARZAD GONZALEZ : [birth year] Exam and Notes Date OMI Varela [...] 07/26/2019 165(lbs) 74.830(kg) 06/23/2019 163.4(lbs) 74.104(kg) FARZAD GONZALEZ: [birth year] Physical Exams Physical Exam Extremities Edema Edema: 2+ mild/4mm (02/28/20) FARZAD GONZALEZ: [birth year] Blood Types and Anti-D Immune Globulin Blood Type and Screen Mother ABO/Rh: -- Mother Antibody Screen: -- Father of Baby ABO/Rh: -- Father of Baby Antibody Screen: -- Anti-D Immune Globulin Rho(D) Initial Status: -- Rho(D) 28 Week Status: -- Rho(D) Dates Given: -- FARZAD GONZALEZ: [birth year] Tests and Lab Results Results ending with 'TR' have been keyed in by the practice or interpreted manually. Result Date: Estimated weeks post pregna ncy onset will display next to actual result date. OB Initial Lab Grouping Test Result Date Ref Range Thinprep Report See report for details 06/23/19 (0 weeks) [facility] [place] Test Comment [id number] [place] assumes no resp onsibility for the accuracy [...] NEGATIVE 09/15/19 (12 weeks) Negative UA Specific [place] 1.025 09/15/19 (12 weeks) (1.005 - 1.030) [...] (27.0 - 34.0) WBC 6.64 K/mcL 01/05/20 ( weeks) (4.10 - 10.90) Lymphocytes % 15.7 %L 01/05/20 ( weeks) (12.0 - 50.0) Neutrophils % 74.5 [...] TR 0.64 mg/dL 03/02/20 (37 weeks) FARZAD GONZALEZ: [birth year] Allergies (Active and Proposed Allergies Only) Bee Stings (Severity: Unknown severity, Onset: Unknown) Reactions: Hives amoxicillin (Severity: Unknown severity, Onset: Unknown) Reactions: Rash FARZAD GONZALEZ: [birth year] Medications Prescriptions and Home Medications Currently [...] vider: Jay Velazco DO Fluarix PF Quadrivalent [id number] (infl uenza virus vaccine, inactivated) 0.5 mL, IM, once Status: Completed Ordered: 06/23/19 Pro vider: Jay Velazco DO FARZAD GONZALEZ : [birth year] Immunizations influenza virus vaccine, inactivated 09/29 (0 weeks) tetanus/diphth/pertuss (Tdap) adult/adol 02/23/20 (35 weeks) FARZAD GONZALEZ: [birth year] Menstrual History Last Recorded Menstrual Period: 06/17/20 19 Last Menstrual Period Description: Naheed l amount/duration Menarche Onset: 12 year(s) Menarche Frequency: 26 day(s) Menarche Length: 5 days Date of Menses Prior to LMP: -- On Hormonal Contracept within 2 months o f LMP: -- Date of Home Test: -- Comments: -- FARZAD GONZALEZ: [birth year] History (0,0,0,0) No previous pregnancies history have be en recorded FARZAD GONZALEZ: 93 Medical History Past Medical History No [...] shoulder (Maci Olson CMA on 09/15/19) FARZAD GONZALEZ : [birth year] Social & Psychosocial History Social History Alcohol Current Current Comment: 1x/month (07/22/2019 16:57 - Sandra Starks CMA) Tobacco Denies Tobacco Use Never (less than 100 in lifetime) Substance Abuse Denies Substance Abuse Never 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 Comment: Payam Gonzalez (07/22/2019 16:57 - Sandra Olson CMA) Exercise and Physical Activity Regular exercise Exercise frequency: 3-4 times/week. Comment: Running (07/22/2019 16:57 - Sandra Campbell CMA) Sexual Sexually active: Yes. Identifies as fem hien, Sexual orientation: Straight or heterosexual. Psychosocial History No active psychosocial history has been recorded FARZAD GONZALEZ: [birth year] Infection History Infection history negative or not recor ded FARZAD GONZALEZ: 93 Anesthesia and Transfusions Prior Anesthesia or Transfusion Received : Prior general anesthesia Prior Anesthesia Reaction(s): -- Prior Transfusion Reaction(s): -- Blood Transfusion Acceptable to Patient: Yes FARZAD GONZALEZ: [birth year] Plan and Patient Requests Education Requested: -- Written Plan: -- Written Plan Location: -- Oral Intake: -- Planned Method of Delivery: -- Transportation to Delivery Location: -- Labor Preferences: -- Non-Medicinal Pain Relief: -- Anesthesia/Pain Medication During Labor: -- Delivery Plan/Summary: -- Feeding: -- Circumcision: -- Baby For Adoption: -- Surrogate : -- Provider Selected: -- Patient Requests: -- Support Person's Name: -- Support Person's Relationship to Patient : -- FARZAD GONZALEZ: 93 Education Educational Materials/Leaflets Provided Title/Topic Date [...] Unit Procedures -- Vaginal Discharge -- FARZAD GONZALEZ : [birth year] Registration and Information Race: White Ethnicity: Not or Marital Status: Language(s): Belarusian Hinduism Preference(s): -- Occupation/Education: See social histor y above if documented. Address, Phone, and Health Plans Home Address: [facility] [place] [address] Phone: --, , -- Health Plans: 1 - [employer] [facility] Member/Group: [id number] Deductible: $ -- Type: Other Address: [facility] [address] [address] 4 Phone: -- General Information OB Provider(s) Information: Not explici tly recorded. May be noted in encounter section below. See below for detailed information fo r all visits and information. Delivery Center/Hospital Information: - - [place] Provider Information: -- Referring Provider Information: -- Primary Provider Information: /Partner Information: -- -- Support Person Information: -- Planned/Unplanned : -- Date Consent Signed for Tubal Ligation: -- Date Record Sent to Hospital: -- FARZAD GONZALEZ : 93 Visits and Encounters (Known en counters since 06/17/2019. May include lab encounters.) Date Location Provider Type Medical Serv ice 2020 Steven Velazco DO, Jay Outpatient -- 2020 [facility] Jessica -NO, [facility] Outpatient -- 02/23/2020 Steven Velazco DO, Jay Outpatient -- 02/21/2020 [facility] Jessica IsbellNO, [facility] Outpatient -- 02/17/2020 Steven Hernández DO, Maci eddie Outpatient -- 02/16/2020 Steven Velazco DO, Jay Outpatient -- 02/02/2020 Steven Vel[facility]co DO, Jay Outpatient -- 01/26/2020 [facility] Jessica -NO, [facility] Outpatient -- 01/05/2020 [facility] -- Between Visit -- 01/05/2020 Steven Velazco DO, Jay Outpatient -- 12/23/2019 [facility] -- Between Visit -- 12/23/2019 [facility] -- Between Visit -- 12/01/2019 [facility] Jeannette Rodriguez Outpatient -- 12/01/2019 [facility] Jessica -NO, [facility] Outpatient -- 11/11/2019 [facility] -- Between Visit -- 11/03/2019 Steven Velazco DO, Jay Outpatient -- 11/03/2019 [facility] Jessica -NO, [facility] Outpatient -- 10/13/2019 Steven Velazco DO, Jay Outpatient -- 09/20/2019 [facility] -- Between Visit -- 09/15/2019 Steven Velazco DO, Jay Outpatient -- 08/18/2019 [facility] Jessica -NO[facility] Outpatient -- 08/18/2019 -- Outpatient -- 07/26/2019 Steven Velazco DO, Jay Outpatient Lab 07/26/2019 Steven Velazco DO, Jay Outpatient -- 07/24/2019 [facility] -- Between Visit -- 06/23/2019 Steven Velazco DO, Jay Outpatient Lab 06/23/2019 Steven Velazco DO, Jay Outpatient -- LISA FARZAD Degroot : [birth year] Visit / Encounter Location Information The following information represents davy guy location and contact information for locations visited during [facility] Business Address: [address] [place] [address] ([place]), ([place]) Note: Items documented with '--' had no [...] 30 gm, 0 Refill(s), Type: Acute, Pharmacy: [facility] #[id number], 1 yaritza Topical bid,Instr:Apply thin filmto affected area BID until resolved Start Date: 12/24/19 Stop Date: 02/28/20 Status: DiscontinuedPrenatal Multivitamins Oral, daily, 0 Refill(s), Type: Maintenance Start Date: 07/26/19 Status: Ordered Problem List Condition Effective Dates Status Health Status Informant Ovulation pain(Confirmed) Active Uterine fibroid in Active (Confirmed) Diagnosis Diagnosis Type Effective Dates Health Status Clinical In formant Service Annual physical Discharge 03/06/21 exam Diagnosis Uterine fibroid Discharge 03/06/21 Diagnosis Procedures Procedure Date Related Diagnosis Body Site Status section 03/03/20 Completed Knee1 2011 Completed Shoulder2 2008 Completed [id number] shoulder Vital Signs Most recent to oldest [Reference Range]: 1 Height Measured 69 in (03/06/21 10:21 AM) Weight Measured 164 lb (03/06/21 10:21 AM) Body Mass Index [18.5-25 kg/m2] 24.22 kg/m2 (03/06/21 10:21 AM) BSA 1.9 m2 (03/06/21 10:21 AM) Blood Pressure [80-130/60-80 mmHg] 122/76 mmHg (03/06/21 10:21 AM) Mean Arterial Pressure 91 mmHg (03/06/21 10:21 AM) Last Menstrual Period (03/06/21 10:21 AM) Allergies Verified? Yes (03/06/21 10:21 AM) Medication History Verified? Yes (03/06/21 10:21 AM) Medical History Verified? No (03/06/21 10:21 AM) Social History Social History Type Response Smoking Status Never smoker Sex
--- OUTSIDE RECORDS SUMMARY | 2022-05-20 13:02 | XMS_ITS | Continuity of Care Document ---
:1995 Author Organization [facility] Address [place] [address] [facility] [place] [address]- Encounter 08/05/21 - 08/07/21 [facility] [address] [place] [address] [place] [address]- Allergies, Adverse Reactions, Alerts Substance Reaction Severity [...] Period EGA: 38 weeks 6 days FARZAD GONZALEZ: [birth year] Risk Factors and Genetic Screening Risk Factors (Current ) Risk Factors: None Risk Factors Comments: -- Ethnic Screening Self, Baby's father: Genetic Disorders Screening No genetic disorders have been recorded . FARZAD GONZALEZ: [birth year] Problems (Active Problems Only) (SNOMED CT: 955456376, Onset: 0 06/17/19) Sergio (SNOMED CT: 42375490, Onse t: --) Uterine leiomyoma (SNOMED CT: 642956645, Onset: --) FARZAD GONZALEZ: [birth year] Visit Diagnosis (Note: All diag noses [...] 12/03/19) 11/11/19 - Encounter for follow-up exami [facility] after completed treatment for conditions other than [...] immunization (I CD-10-CM: Z23, Date: 06/23/19) FARZAD GONZALEZ DOB: [birth year] Antepartum Note Date: 02/28/20 13:53 (36 weeks) By: Barn um DO, Jay gestational htn with concerns about poss ible [...] quickening discussed. wor k precautions discussed FARZAD GONZALEZ: 89 Gestational Age (EGA) and KEILY * [...] have bee n recorded for this FARZAD GONZALEZ: 93 Measurements Pre- Weight: 163 lb 02/23/20 (3 5 weeks) Recent Weight Measured: -- Height/Length Measured: -- Body Mass Index Measured: -- FARZAD GONZALEZ: [birth year] Exam and Notes Date EGA FunHt [...] -- -- Baby = 132bpm Present -- 11/03/19w6d 20 -- -- -- -- 138/76 *171... 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 Comment: Payam Gonzalez (07/22/2019 16:57 - Sandra [...] Person's Relationship to Patient : -- FARZAD GONZALEZ DOB: [birth year] Education Educational Materials/Leaflets Provided Title/Topic Date [...] White Ethnicity: Not or Marital Status: Language(s): Cymro Buddhist Preference(s): -- Occupation/Education: See social histor y above if documented. Address, Phone, and Health Plans Home Address: [facility] [place] [address] Phone: --, , -- Health Plans: [employer] Member/Group: [id number] Deductible: $ -- Type: Other Address: [place] [id number], [place] [address] 4 Phone: -- General Information OB Provider(s) Information: Not explici tly recorded. May be noted in encounter section below. See below for detailed information fo r all visits and information. Delivery Center/Hospital Information: - - [place] Provider Information: -- Referring Provider Information: -- [...] Outpatient -- 2020 Steven Jones 97 [facility] Outpatient -- 02/23/2020 Steven Velazco DO Jay Outpatient -- 02/21/2020 [facility] Jessica -NO, [facility] Outpatient -- 02/17/2020 Steven Hernández DO, Maci morgan Outpatient -- 02/16/2020 Steven Velazco DO, Jay Outpatient -- 02/02/2020 Steven Velazco DO, Jay Outpatient -- 01/26/2020 [facility] Jessica -NO, [facility] Outpatient -- 01/05/2020 [facility] -- Between Visit -- 01/05/2020 Steven Velazco DO, Jay Outpatient -- 12/23/2019 [facility] -- Between Visit -- 12/23/2019 [facility] -- Between Visit -- 12/01/2019 [facility] Ricky Garcia, Jeannette Outpatient -- 12/01/2019 [facility] Jessica -NO, [facility] Outpatient -- 11/11/2019 [facility] -- Between Visit -- 11/03/2019 Steven Velazco DO, Jay Outpatient -- 11/03/2019 Steven IsbellNO, [facility] Outpatient -- 10/13/2019 Steven Velazco DO, Jay Outpatient -- 09/20/2019 [facility] -- Between Visit -- 09/15/2019 Steven Velazco DO, Jay Outpatient -- 08/18/2019 Steven IsbellNO, [facility] Outpatient -- 08/18/2019 -- Outpatient -- 07/26/2019 Steven Velazco DO, Jay Outpatient Lab 07/26/2019 Steven Vleazco DO, Jay Outpatient -- 07/24/2019 [facility] -- Between Visit -- 06/23/2019 Steven Velazco DO, Jay Outpatient Lab 06/23/2019 Steven Velazco DO, Jay Outpatient -- FARZAD GONZALEZ : [birth year] Visit / Encounter Location Information The following information represents davy guy location and contact information for locations visited during [facility] [facility] Address: [address] [place] [address] (English Helper), (Ateo) Note: Items documented with '--' had no [...] 30 gm, 0 Refill(s), Type: Acute, Pharmacy: [facility] #[id number], 1 yaritza Topical bid,Instr:Apply thin filmto affected [...] Completed Knee1 2011 Completed Shoulder2 2008 Completed [id number] shoulder Social History Social History Type Response Smoking Status Never smoker Sex
--- OUTSIDE RECORDS SUMMARY | 2022-05-20 13:02 | XMS_ITS | Continuity of Care Document ---
:1995 Author Organization [facility] Address [facility] [address] [place] [address]- Encounter 04/12/21 - 04/19/21 [facility] [address] [place] [address]- Allergies, Adverse Reactions, Alerts Substance Reaction Severity Status amoxicillin Rash Active Bee Stings Hives Active Assessment and Plan Extracted from: Title: Summary Record Author: Kaye Navarro CMA Date: 03/15/20 FARZAD BAIN : [...] 93 Problems (Active Problems Only) (SNOMED CT: 983587942, Onset: 0 06/17/19) Sergoi (SNOMED CT: 22184246, Onse t: --) Uterine leiomyoma (SNOMED CT: 586628550, Onset: --) FARZAD BAIN: [birth year] Visit Diagnosis [...] 12/03/19) 11/11/19 - Encounter for follow-up exami [facility] after completed treatment for conditions other than [...] Extremities Edema Edema: 2+ mild/4mm (02/28/20) FARZAD BIAN: 93 Blood Types and Anti-D Immune Globulin [...] See report for details 06/23/19 (0 weeks) [facility] Test Comment [id number] [employer] assumes no resp onsibility for the accuracy [...] NEGATIVE 09/15/19 (12 weeks) Negative UA Specific [place] 1.025 09/15/19 (12 weeks) (1.005 - 1.030) [...] ALT 23 unit/L 02/16/20 (34 weeks) <35 [facility] Test Sendout See Lab Report 02/16/20 (34 [...] 14 Years Date: 2008 Comment: right shoulder (SiloamMaci rangel CMA on 09/15/19) FARZAD BAIN : [birth year] Social & Psychosocial History Social History Alcohol Current Current Comment: 1x/month (07/22/2019 16:57 - W Sandra lafleur CMA) Tobacco Denies Tobacco Use Never (less than 100 in lifetime) Substance Abuse Denies Substance Abuse Never 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 Comment: Payam Bain (07/22/2019 16:57 - Sandra [...] White Ethnicity: Not or Marital Status: Language(s): Gibraltarian Sikh Preference(s): -- Occupation/Education: See social histor y above if documented. Address, Phone, and Health Plans Home Address: [address] [place] [address] Phone: --, , -- Health Plans: [employer] Member/Group: [id number] Deductible: $ -- Type: Other Address: [address] [facility] [address], [place] [address] 4 Phone: -- General Information OB Provider(s) Information: Not explici tly recorded. May be noted in encounter section below. See below for detailed information fo r all visits and information. Delivery Center/Hospital Information: - - [place] Provider Information: -- Referring Provider Information: -- [...] Outpatient -- 2020 Steven Jones 97 [facility] Outpatient -- 02/23/2020 Jay Butler DO Outpatient [...] locations visited during [facility] Address: [address] [place] [address] ([employer]), ([employer]) Note: Items documented with '--' had no [...] 30 gm, 0 Refill(s), Type: Acute, Pharmacy: [facility] #[id number], 1 ayritza Topical bid,Instr:Apply thin filmto affected area BID until resolved Start Date: 12/24/19 Stop Date: 02/28/20 Status: DiscontinuedPrenatal Multivitamins Oral, daily, 0 Refill(s), Type: Maintenance Start Date: 07/26/19 Status: Ordered Problem List Condition Effective Dates Status Health Status Informant Ovulation pain(Confirmed) Active Uterine fibroid in Active (Confirmed) Procedures Procedure Date Related Diagnosis Body Site Status section 5/23/20 Completed Knee1 2011 Completed Shoulder2 2008 Completed [id number] shoulder Social History Social History Type Response Smoking Status Never smoker Sex
== END 2022-04-26 12:47 | disposition home or self-care (01) | DRG 540 ==
PROVIDERS: Admitting Provider Obstetrics & Gynecology; PCP Obstetrics & Gynecology; Visit Provider Obstetrics & Gynecology
PROC: 10D00Z1 Extraction of Products of Conception, Low, Open Approach (ICD-10-PCS; CPT 59514; principal; 2022-04-24 18:00)
DX: O34.211 Maternal care for low transverse scar from previous cesarean delivery (principal); O14.04 Mild to moderate pre-eclampsia, complicating childbirth; N80.1 Endometriosis of ovary; Z3A.38 38 weeks gestation of pregnancy; Z37.0 Single live birth
CPT/HCPCS: 01961; 36415; 64488; 76942; 85018; 86850; 86900; 86901; 87635; 88305; 88307; A9270; C9290; J0690; J1885; J2274; J2370; J2405; J2590; J3010; J3490; J7120

== ENCOUNTER 2024-08-23 13:41 | Outpatient (CLI) | payer BC, SELFPAY ==
--- OUTSIDE RECORDS SUMMARY | 2024-08-23 13:43 | XMS_ITS | Clinical Summary ---
Author Organization [facility] Address [place], [place] [address] Care Team Providers Care Nursing Surgical Services Director Name Role Phone Jonna Vazquez MD Primary Care Provider Allergies Active Allergy Reactions Criticality Noted Date Comments Amoxicillin Rash 10/18/2009 Hymenoptera Allergenic Extract 01/30 Medications Medication Sig Dispensed Refills Start Date End Date Status EPINEPHrine (EPIPEN) 0.3 mg/0.3 mL injectionIndication s:Bee sting allergy Inject 0.3 mg intramuscular one time if needed for Allergic Reaction. 1 mL 1 10/27/2016 Active Active Problems Problem Noted Date Diagnosed Date Pap smear for cervical cancer screening 11/05/19 Overview (11/05/2023): 10/2023 NIL/HPV negative Plan: Pap/HPV due 10/2028 Family history of bicuspid aortic valve 10/28/19 Unspecified internal derangement of knee 012 Encounters Date Type Department Care Team Description 06/04/2024 2:05 PM CDT Telemedicine [facility] [address] [place] [address] Shira Alfaro NP Telehealth (Full body rash for 1.5 weeks/No vitals taken -virtual visit./) 06/04/2024 Travel from Last 3 Months Immunizations Name Administration Dates Next Due AMB Influenza, IIV3 (Age >=3 years)(Flu Clinic Only) 08/25/2008 COVID-19 vaccine (Jessica-J&J) PF, MDV 1 DTP 02/11/1995 DTP-HIB 1993,1993,1993 DTaP 05/15/1998 Hepatitis A (Peds) 12/12/2010,11/26/2009 Hepatitis B (Peds) 03/05/1994,1993, 993 Human Papilloma Virus Vaccine 04/26/2014, 012 Influenza, IIV3 (Age >=3 years) 09/05/2011 Influenza, IIV4 10/28/2023, 1,07/04/2020,07/17 MMR 05/15/1998,03/05/1994 Meningococcal Vaccine (Menactra) 05/11/2007 Oral Polio Vaccine 05/15/1998, 4,1993,05/31 Rabies Vaccine 06/01/2014,05/03/2014,04/26/2014 Td (Age >=7 Years) 04/08/2018,03/19/2005 Td, Preservative Free (age >= 7 Years) 0 Tdap 03/12/2022,05/05/2012 Typhoid (injectable) 11/26/2009 Family History Medical History Relation Name Comments Cancer Father Heart attack Father 72, v fib Heart defect Father bicuspid aortic valve Diabetes type II Mother Relation Name Status Comments Brother Alive Father Maternal Grandfather Maternal Grandmother Mother Alive Sister Alive Social History Tobacco Use Types Packs/Day Years Used Date Smoking Tobacco: Never Smokeless Tobacco: Never Comments:no exposure Alcohol Use Standard Drinks/Week Comments No 0 (1 standard drink = 0.6 oz pur e alcohol) PHQ-2 Answer Date Recorded PHQ-2 TOTAL SCORE 0 10/28/2023 Social Connections Answer Date Recorded Do you often feel lonely or isolated from those around you? 0 10/25/2023 Financial Resource Strain Answer Date R ecorded Difficulty of Paying Living Expenses 3 10/28/2023 Difficulty of Paying Living Expenses Not on file 10/28/2023 Food Insecurity Answer Date Recorded Do you worry your food will run out before you are able to buy more? 1 10/25/2023 Transportation Needs Answer Date Record ed Does lack of transportation keep you from medica l appointments? 1 10/25/2023 Does lack of transportation keep you from work, meetings or getting things that you need? 1 10/25/2023 Housing Stability Answer Date Recorded What is your housing situation today? 1 10/25/2023 Sex and Gender Information Value Date Recorded Sex Assigned at Not on file Gender Identity Not on file Sexual Orientation Not on file Obstetrics History Last Filed Vital Signs Vital Sign Reading Time Taken Comments Blood Pressure 118/78 10/28/2023 11:34 AM CONSTRUCTION STONEMASON Pulse 63 10/28/2023 11:34 AM CONSTRUCTION STONEMASON Temperature 36.8 ??C (98.3 ??F) 03/22/2021 4:01 PM CD T Respiratory Rate 20 06/10/2012 1:00 PM CDT Oxygen Saturation 99% 10/28/2023 11:34 AM CONSTRUCTION STONEMASON Inhaled Oxygen Concentration - - Weight 77.6 kg (171 lb) 10/28/2023 11:34 AM CONSTRUCTION STONEMASON Height 175 cm (5' 8.9) 10/28/2023 11:34 AM CONSTRUCTION STONEMASON Body Mass Index 25.33 10/28/2023 11:34 AM CONSTRUCTION STONEMASON Plan of Treatment Health Maintenance Due Date Last Done Comments HIV for age 15-65 02/29/2008 Hepatitis C screening for age 18-79 2011 COVID-19 vaccine series ( season) 2024 10/23/2021, 01/12/2021 Influenza for age 9-49 06/12/2024 , 09/25/2021, 07/04/2020, Additional history exists BMI (ht and wt on same day) for age 18+ 10/28/2024 10/28/2023 Depression screening for age 12+ 10/28/2024 10/28/2023 Pap test for age 21-65 10/28/2028 , 10/28/2023, 06/23/2019 (Completed outside of [facility]) Tetanus booster 03/12/2032 03/12/2022, 02/09, 04/08/2018, Additional history exists Tdap Completed 03/12/2022, 05/05/2012 Pneumococcal series for age 6-64 Aged Out No longer eligible based on patient's age to complete this topic Procedures Procedure Name Priority Date/Time Associated Diagnosis Comments HPV HIGH RISK Routine 10/28/2023 11:50 AM CONSTRUCTION STONEMASON Screening for malignant neoplasm of cervix from Last 3 Months or Most Recently Relevant to Health Maintenance Results * HPV HIGH RISK (10/28/2023 11:50 AM CONSTRUCTION STONEMASON) TYPE 16 Negative Negative 10/30/2023 5:16 PM CONSTRUCTION STONEMASON [facility] TYPE 18 Negative Negative 10/30/2023 5:16 PM CONSTRUCTION STONEMASON [facility] OTHER HIGH RISK TYPES Negative Negative 10/30/2023 5:16 PM CONSTRUCTION STONEMASON [facility] Other (Cervical) Non-Blood / Unknown 10/28/2023 11:50 AM CONSTRUCTION STONEMASON 10/29/2023 11:44 AM CONSTRUCTION STONEMASON Narrative [facility] - 10/30/2023 5:16 PM CONSTRUCTION STONEMASON HPV types 16, 18, 31, 33, 35, 39, 45, 51, 52, 56, 58, 59, 66 and 68 DNA were undetectable or below the pre-set threshold. Methodology: Liam Allie 4800 HPV Test Jonna Vazquez MD MICROBIOLOGY [facility] [address] [place] [address], from Last 3 Months or Most Recently Relevant to Health Maintenance Advance Directives * Full Code (Latest Code Status on File) Date Activated Date Inactivated Comments 06/10/2012 9:36 AM 06/10/2012 3:50 PM * Full Code Date Activated Date Inactivated Comments 06/10/2012 7:30 AM 06/10/2012 9:36 AM Care Teams Nursing Surgical Services Director Relationship Specialty Start Date End Date Jonna Vazquez MD [address] [place] [address] PCP - General 04/06/06
--- NOTE | 2024-08-23 14:00 | CRLHL7_ITS ---
For Patients: As a result of the Century Cures Act, medical imaging exams and procedure reports are released immediately into your electronic medical record. You may view this report before your referring provider. If you have questions, please contact your health care provider. INDICATION: First trimester dating and viability. TECHNIQUE: Ultrasound OB pelvis transabdominal and transvaginal. Real-time sierra-scale imaging of the pelvis was performed. COMPARISON: Ob ultrasound 09/25/2021 FINDINGS: Intrauterine gestation: Single. heart activity (bpm): 149 andregular. Chokio-rump length: 7.3 cm. Limited evaluation of anatomy demonstrates no gross abnormalities. Estimated ultrasound age: 13 weeks 3 days KEILY by ultrasound: 02/25/2025. Placenta: Posterior Perigestational hemorrhage: None. Ovaries and adnexa: The right ovary measures 3.7 x 2.6 x 2.5 cm. The left ovary measures 4.6 x 1.9 x 2.1 cm. An anechoic cystic structure in the posterior cul-de-sac/right adnexa measures 5.6 x 4.5 x 4.5 cm. Suspicious pelvic fluid collections: None. IMPRESSION: 1. Single viable intrauterine with sonographic gestational age of 13 weeks 3 days and a sonographic due date of 02/25/2025. Limited evaluation of anatomy demonstrates no gross abnormalities. 2. Anechoic cystic structure in the posterior cul-de-sac/right adnexa measuring up to 5.6 cm may reflect the previously noted benign ovarian mass or endometrioma seen on prior OB ultrasound from 2020. Alternatively, this may represent a paraovarian cyst. Dictated by Rachel Montejo MD @ 08/24/2024 1:14:06 PM (Electronically Signed)
== END 2024-08-23 13:42 | disposition home or self-care (01) ==
LOC: US 13:42
PROVIDERS: Visit Provider Physician Assistant
DX: Z34.91 Encounter for supervision of normal pregnancy, unspecified, first trimester (principal); Z3A.13 13 weeks gestation of pregnancy
CPT/HCPCS: 76801

== ENCOUNTER 2024-08-23 15:09 | Outpatient (CLI) | payer BC, SELFPAY ==
--- OUTSIDE RECORDS SUMMARY | 2024-08-23 15:12 | XMS_ITS | Clinical Summary ---
Author Organization [facility] Address [place], [place] [address] Care Team Providers Care Exercise Teacher Name Role Phone Jonna Vazquez MD Primary [...] Team Description 06/04/2024 2:05 PM CDT Telemedicine [facility] [address] [place] [address] Shira Alfaro NP Telehealth (Full [...] Comments Blood Pressure 118/78 10/28/2023 11:34 AM MEAT APPRENTICE Pulse 63 10/28/2023 11:34 AM MEAT APPRENTICE Temperature 36.8 ??C (98.3 ??F) 03/22/2021 4:01 PM CD T Respiratory Rate 20 06/10/2012 1:00 PM CDT Oxygen Saturation 99% 10/28/2023 11:34 AM MEAT APPRENTICE Inhaled Oxygen Concentration - - Weight 77.6 kg (171 lb) 10/28/2023 11:34 AM MEAT APPRENTICE Height 175 cm (5' 8.9) 10/28/2023 11:34 AM MEAT APPRENTICE Body Mass Index 25.33 10/28/2023 11:34 AM MEAT APPRENTICE Plan of Treatment Health Maintenance Due Date [...] 10/28/2028 , 10/28/2023, 06/23/2019 ([facility]) Tetanus booster 03/12/2032 03/12/2022, 02/09, 04/08/2018, Additional history exists Tdap Completed 03/12/2022, 05/05/2012 Pneumococcal series for age 6-64 Aged Out No longer eligible based on patient's age to complete this topic Procedures Procedure Name Priority Date/Time Associated Diagnosis Comments HPV HIGH RISK Routine 10/28/2023 11:50 AM MEAT APPRENTICE Screening for malignant neoplasm of cervix from Last 3 Months or Most Recently Relevant to Health Maintenance Results * HPV HIGH RISK (10/28/2023 11:50 AM MEAT APPRENTICE) TYPE 16 Negative Negative 10/30/2023 5:16 PM MEAT APPRENTICE [facility] TYPE 18 Negative Negative 10/30/2023 5:16 PM MEAT APPRENTICE [facility] OTHER HIGH RISK TYPES Negative Negative 10/30/2023 5:16 PM MEAT APPRENTICE [facility] Other (Cervical) Non-Blood / Unknown 10/28/2023 11:50 AM MEAT APPRENTICE 10/29/2023 11:44 AM MEAT APPRENTICE Narrative [facility] - 10/30/2023 5:16 PM MEAT APPRENTICE HPV types 16, 18, 31, 33, 35, 39, 45, 51, 52, 56, 58, 59, 66 and 68 DNA were undetectable or below the pre-set threshold. Methodology: Liam Allie 4800 HPV Test Jonna Vazquez MD MICROBIOLOGY [facility] [address] [place] [address], from Last 3 Months or Most Recently Relevant to Health Maintenance Advance Directives * Full Code (Latest Code Status on File) Date Activated Date Inactivated Comments 06/10/2012 9:36 AM 06/10/2012 3:50 PM * Full Code Date Activated Date Inactivated Comments 06/10/2012 7:30 AM 06/10/2012 9:36 AM Care Teams Exercise Teacher Relationship Specialty Start Date End Date Jonna Vazquez MD [address] [place] [address] PCP - General 04/06/06
[2024-08-23 19:51] LABS: Chlamydia DNA Amplified* NOT DETECTED (No Detected); GC DNA Amplified* NOT DETECTED (No Detected)
== END 2024-08-23 15:10 | disposition home or self-care (01) ==
PROVIDERS: Visit Provider Physician Assistant
DX: Z34.91 Encounter for supervision of normal pregnancy, unspecified, first trimester (principal); Z3A.12 12 weeks gestation of pregnancy
CPT/HCPCS: 76801; 82565; 82570; 84156; 84450; 84460; 84520; 86592; 86703; 86704; 86706; 86762; 86787; 86803; 86850; 86900; 86901; 87086; 87340; 87491; 87591

== ENCOUNTER 2024-09-05 06:00 | Outpatient (CLI) | payer BC, SELFPAY ==
--- OUTSIDE RECORDS SUMMARY | 2024-09-05 14:13 | XMS_ITS | Clinical Summary ---
Author Organization [facility] Address [place], [place] [address] Care Team Providers Care Extension Course Counselor Name Role Phone Jonna Vazquez MD Primary [...] 10/28/19 Unspecified internal derangement of knee 012 Immunizations Name Administration Dates Next Due AMB Influenza, IIV3 (Age >=3 years)(Flu Clinic Only) 08/25/2008 COVID-19 vaccine (Jessica-J&J) JOSIE LIAO DTP 02/11/1995 DTP-HIB 1993,1993,1993 DTaP 05/15/1998 Hepatitis [...] Comments Blood Pressure 118/78 10/28/2023 11:34 AM VACUUM CLEANER OPERATOR Pulse 63 10/28/2023 11:34 AM VACUUM CLEANER OPERATOR Temperature 36.8 C (98.3 F) 03/22/2021 4:01 PM CDT Respiratory Rate 20 06/10/2012 1:00 PM CDT Oxygen Saturation 99% 10/28/2023 11:34 AM VACUUM CLEANER OPERATOR Inhaled Oxygen Concentration - - Weight 77.6 kg (171 lb) 10/28/2023 11:34 AM VACUUM CLEANER OPERATOR Height 175 cm (5' 8.9) 10/28/2023 11:34 AM VACUUM CLEANER OPERATOR Body Mass Index 25.33 10/28/2023 11:34 AM VACUUM CLEANER OPERATOR Plan of Treatment Health Maintenance Due Date Last Done Comments HIV for age 15-65 02/29/2008 Hepatitis C screening for age 18-79 2011 COVID-19 vaccine series () 06/12/2024 10/23/2021, 01/12/2021 Influenza for age 9-49 06/12/2024 4, 09/25/2021, 07/04/2020, Additional history exists BMI (ht and wt on same day) for age 18+ 10/28/2024 10/28/2023 Depression screening for age 12+ 10/28/2024 10/28/2023 Pap test for age 21-65 10/28/2028 4, 10/28/2023, 06/23/2019 (Completed outside of [facility]) Tetanus booster 03/12/2032 03/12/2022, 02/09, 04/08/2018, Additional history exists Tdap Completed 03/12/2022, 05/05/2012 Pneumococcal series for age 6-64 Aged Out No longer eligible based on patient's age to complete this topic Procedures Procedure Name Priority Date/Time Associated Diagnosis Comments HPV HIGH RISK Routine 10/28/2023 11:50 AM VACUUM CLEANER OPERATOR Screening for malignant neoplasm of cervix from Last 3 Months or Most Recently Relevant to Health Maintenance Results * HPV HIGH RISK (10/28/2023 11:50 AM VACUUM CLEANER OPERATOR) TYPE 16 Negative Negative 10/30/2023 5:16 PM VACUUM CLEANER OPERATOR [facility] TYPE 18 Negative Negative 10/30/2023 5:16 PM VACUUM CLEANER OPERATOR [facility] OTHER HIGH RISK TYPES Negative Negative 10/30/2023 5:16 PM VACUUM CLEANER OPERATOR [facility] Other (Cervical) Non-Blood / Unknown 10/28/2023 11:50 AM VACUUM CLEANER OPERATOR 10/29/2023 11:44 AM VACUUM CLEANER OPERATOR Narrative [facility] - 10/30/2023 5:16 PM VACUUM CLEANER OPERATOR HPV types 16, 18, 31, 33, 35, 39, 45, 51, 52, 56, 58, 59, 66 and 68 DNA were undetectable or below the pre-set threshold. Methodology: Liam Allie 4800 HPV Test Jonna Vazquez MD MICROBIOLOGY [facility] [address] [address], from Last 3 Months or Most Recently Relevant to Health Maintenance Advance Directives * Full Code (Latest Code Status on File) Date Activated Date Inactivated Comments 06/10/2012 9:36 AM 06/10/2012 3:50 PM * Full Code Date Activated Date Inactivated Comments 06/10/2012 7:30 AM 06/10/2012 9:36 AM Care Teams Extension Course Counselor Relationship Specialty Start Date End Date Jonna Vazquez MD [address] [place] [address] PCP - General 04/06/06
== END 2024-09-05 06:01 | disposition home or self-care (01) ==
LOC: NFLDREF 14:03
PROVIDERS: Visit Provider Physician Assistant
DX: Z34.91 Encounter for supervision of normal pregnancy, unspecified, first trimester (principal)
CPT/HCPCS: 82570; 84156

== ENCOUNTER 2024-10-19 12:53 | Outpatient (CLI) | payer BC, SELFPAY ==
--- NOTE | 2024-10-19 13:00 | CRLHL7_ITS ---
For Patients: As a result of the Century Cures Act, medical imaging exams and procedure reports are released immediately into your electronic medical record. You may view this report before your referring provider. If you have questions, please contact your health care provider. INDICATION: survey TECHNIQUE: Conventional transabdominal two-dimensional grayscale ultrasound examination COMPARISON: 08/23/2024 FINDINGS: There is a living fetus with gestational age of 21 weeks 4 days by LMP and 21 weeks 1 day by today`s measurements. EDC based on LMP is 02/25/2025. BPD: 4.8 cm, 20 weeks 4 days Head circumference: 18.1 cm, 20 weeks 4 days Abdominal circumference: 16.8 cm, 21 weeks 6 days Femur length: 3.5 cm, 21 weeks HC/AC: 1.08 The weight is estimated at 414 grams, the 31st percentile. The heart rate is measured at 145 beats per minute and the rhythm appears regular. The head and spine are grossly intact. No gross facial abnormality is evident. The upper lip is intact. Four cardiac chambers are demonstrated. The heart and stomach appear to be on the same side. The diaphragm is intact. Two kidneys and a bladder are demonstrated. The cord insertion is normal and three cord vessels are noted. Four extremities are demonstrated. The amniotic fluid volume is within normal limits. The placenta is posterior with no evidence of previa. The cervical length is normal at 5.0 cm. IMPRESSION: 1. Living fetus with gestational age of 21 weeks 4 days by LMP and 21 weeks 1 day by today`s measurements. EDC based on LMP is 02/25/2025. 2. No anomaly evident. Dictated by Ap Schroeder MD @ 10/20/2024 2:09:55 PM (Electronically Signed)
== END 2024-10-19 12:54 | disposition home or self-care (01) ==
LOC: US 12:54
PROVIDERS: Visit Provider Obstetrics & Gynecology
DX: Z34.92 Encounter for supervision of normal pregnancy, unspecified, second trimester (principal); Z3A.21 21 weeks gestation of pregnancy
CPT/HCPCS: 76805

== ENCOUNTER 2024-12-14 14:30 | Outpatient (CLI) | payer BC, SELFPAY | END 2024-12-14 14:31 | disposition home or self-care (01) | LOC: NFLDREF 12-17 03:55 | PROVIDERS: Visit Provider Advanced Practice Midwife | DX: O99.810 Abnormal glucose complicating pregnancy (principal) | CPT/HCPCS: 86592 ==

== ENCOUNTER 2024-12-21 08:20 | Outpatient (CLI) | payer BC, SELFPAY | END 2024-12-21 08:21 | disposition home or self-care (01) | LOC: NFLDREF 12-23 04:18 | PROVIDERS: Visit Provider Advanced Practice Midwife | DX: R73.09 Other abnormal glucose (principal) | CPT/HCPCS: 82951; 82952 ==

== ENCOUNTER 2025-02-03 14:13 | Outpatient (CLI) | payer BC, SELFPAY ==
[2025-02-03] VITALS (23 sets, daily range): BP systolic 136–159; BP diastolic 81–104; PULSE 89–108; RESP 16; TEMP 36.7; O2SAT 97–100
[2025-02-03 14:58] LABS: Hematocrit 35.7 % (33.0-51.0); Hemoglobin* 12.2 gm/dL (12.0-16.0); Mean Corpuscular HGB Conc 34 gm/dL (32-36); Mean Corpuscular Hemoglobin 28 pg (26-34); Mean Corpuscular Volume 83 fL (80-100); Platelet Count* 169 K/uL (140-440); White Blood Count* 7.42 K/uL (4.50-11.00)
[2025-02-03 14:59] LABS: Slide Review Reflex No
[2025-02-03 15:14] LABS: Alanine Aminotransferase* 19 U/L (4-35); Aspartate Amino Transferase* 29 U/L (12-35); Blood Urea Nitrogen* 9 mg/dL (5-24); Creatinine* 0.6 mg/dL (0.5-1.5); Estimated Glomerular Filt Rate 123 ml/min
[2025-02-03 16:25] LABS: Total Protein Urine 20 mg/dL
[2025-02-03 16:26] LABS: Creatinine Urine 44.3 mg/dL; Protein Creatinine Ratio Urine 0.45 (0-0.19)
--- NOTE | 2025-02-03 18:27 | W.PM.OBO ---
OB Outpatient HPI History of Present Illness Date Seen: 02/03/25 History of Present Illness: 29 year old at 36 6/7 weeks gestation by early ultrasound, KEILY 02/25/2025, presents with increased BP. She states that she felt short of breath and fatigued while working today, but admits that her work day was quite demanding physically. [facility] obstetric [facility], and her blood pressure was found to be elevated to 150/100. She was sent to the center for blood pressure monitoring, labs, and further evaluation. She had planned a repeat section with bilateral salpingectomies on 02/25/2025 (38 3/7 weeks) with Dr. Land. 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 3 vessel cord, posterior placenta without previa, SDP 5.2, EFW 30.8%, AC 50.7%, normal visualized anatomy. Vaccinations: COVID: Declines Flu: 08/23/2024 Tdap: 12/14/24 Last pap: 10/28/23 Baby moving naturally: Yes Bleeding: No Contractions: No Leaking fluid: No Discharge: No Heartburn: No Back pain: No Other comments: Denies headaches, visual changes. Notes increased swelling, usually wears compression stockings, but getting too difficult to put them on. Meds Home Medications and Allergies Home Medications ?Medication ?Instructions ?Recorded ?Confirmed ?Type docosahexaenoic acid 200 mg 200 mg PO DAILY 04/16/22 02/03/25 History capsule ( DHA) aspirin 81 mg chewable tablet 81 mg PO QDAY 09/21/24 02/03/25 History Allergies Allergy/AdvReac Type Severity Reaction Status Date / Time amoxicillin Allergy Intermediate Hives Verified 02/03/25 14:04 bee venom protein (honey bee) Allergy Intermediate Hives & Verified 02/03/25 14:04 Swelling PFSH Medical History Endometrioma of ovary (04/24/22) ?N80.1 - Endometriosis of ovary (ICD-10) History of gestational hypertension ?Z87.59 - Personal history of other complications of , childbirth and the puerperium (ICD-10) Mild preeclampsia (2021) ?O14.00 - Mild to moderate pre-eclampsia, unspecified trimester (ICD-10) Surgical History History of 2 sections ?Z98.891 - History of uterine scar from previous surgery (ICD-10) Status post ovarian cystectomy (04/24/22) ?Z98.890 - Other specified postprocedural states (ICD-10) ?Z87.42 - Personal history of other diseases of the female genital tract (ICD-10) Labral tear of shoulder (2007) ?S43.439A - Superior glenoid labrum lesion of unspecified shoulder, initial encounter (ICD-10) Torn medial meniscus (2011) ?S83.249A - Other tear of medial meniscus, current injury, unspecified knee, initial encounter (ICD-10) Family History Mother High blood pressure Diabetes Ovarian cancer Father Cardiac arrhythmia Social History Narrative: 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 Marital status: . Confucianism/cultural needs: no. Chemical or radiation exposure: no. Pre- tobacco use: no. Pre- alcohol use: no. Current tobacco use: no. Current alcohol use: no. Recreational drug use: no. Dietary restrictions: no. Blood transfusion acceptable in an emergency: yes. PSYCHOSOCIAL HISTORY: History of depression or currently depressed: no. Current or past physical, emotional, or sexual mistreatment: no. Problems that will make it hard to make it to appointments: no. What is your current living situation?: I presently have a place to live Problems where you live: no known problems In the past 12 months, utilities in danger of being shut off: no In past 12 months, lack of transportation kept you from medical appts, meetings, work, or getting things needed for daily living: no In the past 12 mos, have been you worried that your food would run out before you had money to buy more?: never true In the past 12 mos, the food you bought just didn't last and you didn't have money to buy more?: never true Smoking Status: Never smoker How often does anyone, including family, friends and others, physically hurt you: never How often does anyone, including family, friends and others, insult or talk down to you: never How often does anyone, including family, friends and others, threaten you with harm: never How often does anyone, including family, friends and others, scream or curse at you: never History History 3 Elective abortions Para 2 Spontaneous abortions Hx # Term Pregnancies 2 Ectopic pregnancies Hx # Pregnancies Multiple births Number of Living Children 2 Past Pregnancies Del. Date GA/Weeks Outcome Route wt Inf Gender Labor Lgth Anesthesia Location Provider Compli 03/03/20 37 live - full term low transverse 7 lb 9 oz [facility] preeclampsia 04/24/22 38 live - full term low transverse 8 lb 13 oz [facility] preeclampsia Delivery Date: 03/03/20 Last Updated by: Sarahy Skelton ~ FINISH ROLLS OPERATOR, FINISH ROLLS OPERATOR IOL thur to sat OB - H&P: Exam Physical Exam Vital signs: Temp Pulse Resp BP Pulse Ox 98.1 F 96 16 155/94 H 98 02/03/25 16:17 02/03/25 17:58 02/03/25 16:17 02/03/25 17:58 02/03/25 15:08 Constitutional Constitutional: no acute distress Routine HEENT Exam Head: Present normal inspection Routine Respiratory Exam Respiratory: Present CTA bilaterally; Absent crackles, rhonchi or wheezes Routine Cardiovascular Exam Cardiovascular: RRR Routine Abdominal Exam Abdominal: Present soft; Absent distended or tenderness Comments: gravid, vertex by Bertin's Detailed Labor and Delivery Exam Patient Gravid: Yes Fetus (Single) Amniotic Membrane Status: intact Routine Extremities Exam Extremities: Present normal inspection; Absent calf tenderness or pedal edema Routine Psychiatric Exam Present normal affect Labs Labs Laboratory Tests 02/03/25 02/03/25 Range/Units 14:46 14:25 WBC 7.42 (4.50-11.00) K/uL RBC 4.30 (4.00-5.20) m/uL Hgb 12.2 (12.0-16.0) gm/dL Hct 35.7 (33.0-51.0) % MCV 83 (80-100) fL MCH 28 (26-34) pg MCHC 34 (32-36) gm/dL Plt Count 169 (140-440) K/uL BUN 9 (5-24) mg/dL Creatinine 0.6 (0.5-1.5) mg/dL Estimated GFR 123 ml/min AST 29 (12-35) U/L ALT 19 (4-35) U/L Urine Creatinine 44.3 mg/dL Protein/Creatinin Ratio 0.45 H (0-0.19) Urine Total Protein 20 mg/dL Assessment and Plan Assessment and plan (1) : Status: Acute (2) Pre-eclampsia: Status: Acute (3) History of 2 sections: Problem comment: 03/03/20 & 04/24/22. Status: Acute Plan The patient was monitored for more than 4 hours in the Center. Blood pressures were elevated consistently over 4 hours to meet criteria for pre-eclampsia in addition to new onset proteinuria as evidenced by elevated urine protein/creatinine ratio. Platelet count and liver function tests were normal. Patient has no evidence of severe features. Recommend delivery at 37 weeks gestation, which would be tomorrow. The patient desires repeat section with bilateral salpingectomies, and possibly ovarian cystectomy if a large ovarian cyst is still present at the time of surgery. She is okay for anesthesia, regional anesthesia is planned for the delivery. Informed consent will be obtained tomorrow morning by Dr. Perez, who will be the attending surgeon. Preoperative orders will be entered into the hold queue this evening. Will plan to recheck preeclampsia labs tomorrow upon admission. We discussed preoperative instructions, including when she needs to be NPO and what time she should plan to arrive to the hospital (7:15 am). Sign out was given to Dr. Perez.
--- NOTE | 2025-02-03 19:38 | PC.OBNST ---
NST Note NST Note Start: 02/03/25 14:25 Freq: ONCE Status: Active Protocol: Document 02/03/25 19:29 JRS (Rec: 02/03/25 19:31 JRS No Response) NST Note 3 Para (# of births) 2 EDC 02/25/25 Gestational Age In Weeks & Days 36 Weeks & 6 Days High Risk Factors High Blood Pressure - Gestational Patient Presented with Complaint(s) of Other Other Complaints BP monitoring Reactive Yes Appropriate for Gestational Age Yes ANN Ham RN Date 02/03/25 Reactive Yes Appropriate for Gestational Age Yes ANN Ling RNC Date 02/03/25 OB NST charge Yes Complete NST Note via Write Note Yes The provider's electronic signature indicates the NST is reactive/appropriate for gestational age. *Note to provider: If an addendum is required, open the patient's chart and click on the note under the Nurse/Allied Health tab.
== END 2025-02-03 18:15 | disposition home or self-care (01) ==
LOC: OB OUT 14:16 → OB 14:17
PROVIDERS: Visit Provider Obstetrics & Gynecology
DX: O13.3 Gestational [pregnancy-induced] hypertension without significant proteinuria, third trimester (principal); Z3A.36 36 weeks gestation of pregnancy
CPT/HCPCS: 36415; 59025; 82565; 82570; 84156; 84450; 84460; 84520; 85027; G0463

== ENCOUNTER 2025-02-04 07:11 | Inpatient (IN) | payer BC, SELFPAY ==
[2025-02-04] VITALS (24 sets, daily range): BP systolic 117–144; BP diastolic 68–91; PULSE 76–107; RESP 16–20; TEMP 36.3–36.6; O2SAT 95–100; BMI 31.6
[2025-02-04] MEDS: LACTATED RINGERS 1000 ML 1,000 ML 500 ML IV (07:42)
[2025-02-04 07:46] LABS: Basophils Absolute Auto 0.01 K/uL (0.00-0.30); Basophils Percent Auto 0.1 % (0.0-3.0); Eosinophils Absolute Auto 0.09 K/uL (0.00-0.50); Eosinophils Percent Auto 1.3 % (0.0-7.0); Hematocrit 36.1 % (33.0-51.0); Hemoglobin* 12.3 gm/dL (12.0-16.0); Immature Granulocytes Abs Auto 0.01 K/uL (0.00-0.30); Immature Granulocytes Pct Auto 0.1 %; Lymphocytes Percent Auto 17.7 % (20-44); Mean Corpuscular HGB Conc 34 gm/dL (32-36); Mean Corpuscular Hemoglobin 28 pg (26-34); Mean Corpuscular Volume 82 fL (80-100); Neutrophils Percent Auto 73.8 % (42.0-72.0); Platelet Count* 181 K/uL (140-440); RDW Coefficient of Variation % 12.4 % (11.5-15.5); Red Blood Count 4.39 m/uL (4.00-5.20); White Blood Count* 7.01 K/uL (4.50-11.00)
--- NOTE | 2025-02-04 07:50 | P.OBPRC_ITS ---
Procedure Time Seen by Provider: 11:01 Date of procedure: 02/04/25 Pre-op diagnosis: 29yo at 37w0d with preeclampsia without severe features, desires repeat section, undesired fertility Post-op diagnosis: same Procedure Done: Global Will [facility] bill your pro fee for this procedure?: Yes Blood Loss Measurement Type: QBL (737 mL) Bakri Used: No IV fluids (mL): 1,200 Urine Output (mL): 100 Urine Output Comment: clear urine at the end of the procedure Surgeon: Melody Perez MD Applications Analyst: N/A Anesthesia Type: Spinal and TAP Block Procedure Description: Preoperative diagnosis: 29-year-old 3 para 2001 at 37 and 0/7 weeks admitted for a scheduled repeat low transverse section. * Preeclampsia without severe features * Undesired fertility Postoperative diagnosis: Same with serous left ovarian cyst Procedure: Repeat low-transverse section. Bilateral salpingectomy. Left ovarian cystectomy. Anesthesia: Spinal, TAPS block Surgeon: Melody Perez MD Applications Analyst: Not applicable Quantitative blood loss: 737 mL IV fluid: 1200 mL Urine output: 100 mL Drain(s): Cardenas to gravity. Specimen: 1. Placenta 2. Bilateral fallopian tubes 3. Left ovarian cyst wall Findings: A live female infant was delivered from the direct OA position at 9:49 a.m. Apgars were 8 at 1 min and 9 at 5 min, respectively. Infant weight: 7 lb 4 oz, 3280 g. Nuchal cord(s): No. The placenta was delivered spontaneously and complete at 9:51 a.m. Amniotic fluid: Clear. Normal uterus. Left ovarian cyst approximately 3 x 5 cm in diameter containing serous fluid. Right ovary and right fimbria adherent to the ascending colon. Other findings: none Procedure: Eliz was taken to the OR where spinal anesthetic was found be adequate. A Cardenas catheter was placed. The patient was then placed in the dorsal supine position with a leftward tilt. She was then prepped and draped in a normal sterile manner. A Pfannenstiel skin incision was made and carried through sharply to the underlying layer of fascia. Fascia was incised in the midline and this incision carried laterally with Barrera scissors. The superior aspect of fascial incision was grasped with Kimberly clamps, tented up, and the rectus muscles dissected off with a combination of blunt and sharp dissection. The inferior aspect of the fascial incision was grasped with Kimberly clamps, tented up and again the rectus muscles dissected off with a combination of blunt and sharp dissection. The rectus muscles were in the midline. The peritoneum was entered bluntly. This opening was extended in layers with the Barrera scissors. An Philip-O self-retaining retractor was placed. A bladder flap was created using Metzenbaum scissors and created digitally. Uterus was incised in a low transverse manner in the midline. This incision carried laterally with blunt pressure on the inferior and superior aspects of the uterine incision. The amniotic sac was ruptured. The 's head and body were delivered atraumatically. The infant was shown to the patient and her support person. The umbilical cord was clamped and cut after a 32nd delay. The was then handed to waiting nursing staff. The placenta was delivered spontaneously. The uterus was cleared of clots and debris. The uterine incision was re-approximated with the uterus in vivo. The 1st layer using 0-Vicryl in a running, locked manner. The 2nd layer using 0-Monocryl in a running, vertical, imbricating layer. Additional sutures needed for hemostasis: Yes: 3 figure of 8 sutures using 2-0 chromic were placed for hemostasis. Attention was turned performing an ovarian cystectomy. The cornu of the uterus was brought to the incision. The left ovary was noted to be enlarged with a cyst. The cyst was incised lengthwise or the ovary using bipolar cautery. The cyst was noted to be at least 2 serous cysts and the cyst guzman were removed. The ovary was reapproximated in 2 layers using 2-0 Vicryl suture in a running locked manner. Five additional figure of 8 sutures were placed using 2-0 Vicryl in 3 figure of 8 sutures you 2-0 chromic were placed for hemostasis. Attention was then turned to performing the bilateral salpingectomy. The right fallopian tube was grasped with 2 [place] clamps. The small, hand-held LigaSure dissecting forceps was used to perform the salpingectomy. Sequential pedicles were formed starting at the fimbriated and and moving toward the cornua. The tube was then removed at the cornual aspect. All pedicles were noted to be hemostatic. Attention was turned to performing the left salpingectomy. Was noted that the ovary and the fimbriated end of the tube were adherent to the ascending colon. 3/4 of the fallopian tube were removed on the right leaving the fimbria and ovary adherent to the colon prevent injury to the colon. The LigaSure, hand-held forceps were used again starting just proximal to the fimbria in moving toward the cornua. The tube was removed from the cornea and all pedicles noted to be hemostatic. The uterine incision was then inspected 2 figure of 8 sutures using 2-0 chromic were placed for hemostasis. Jean Pierre was applied to the uterine incision. Excellent hemostasis was confirmed. The Philip retractor was removed. The rectus muscles were not reapproximated. The rectus muscles were then closely inspected to verify hemostasis. Hemostasis was obtained with bipolar cautery. The fascia was then reapproximated using 0-Maxon loop in a running manner. The subcutaneous tissue was then irrigated with saline and hemostasis obtained with bipolar cautery. The subcutaneous tissue was reapproximated using 3-0 plain gut in a running manner. The skin was reapproximated using 4-0 Monocryl in a running subcuticular manner. Exophin skin adhesive and a Mepilex dressing were applied. The patient tolerated this procedure well. Sponge, lap and instrument counts were correct x2 active to the procedure. Patient was taken to the recovery area in stable condition. The patient received 2 g of IV Ancef prior to skin incision. She received 30 mg IV Toradol the end of the procedure. Pathology: specimen obtained, sent to pathology (1. Placenta 2. Bilateral fallopian tubes) Surgery Debrief Performed: Yes Condition: stable Disposition: floor
--- NOTE | 2025-02-04 07:50 | W.PM.H&PU ---
History & Physical Update History & Physical Update H&P Reviewed and patient assessed: No changes noted
[2025-02-04 07:54] LABS: Slide Review Reflex No
[2025-02-04 08:04] LABS: Alanine Aminotransferase* 18 U/L (4-35); Aspartate Amino Transferase* 39 U/L (12-35)
[2025-02-04] MEDS: CEFAZOLIN 1 GM inj 2 GM IVP (09:25)
[2025-02-04] MEDS: KETOROLAC 30 MG/ML inj IVP ×2 (10:48→17:53)
--- NOTE | 2025-02-04 11:22 | W.ANESCHARGE ---
Anesthesia Charges Start Date/Time Anesthesia Start Date: 02/04/25 Anesthesia Start Time: 09:15 Stop Date/Time Anesthesia Stop Date: 02/04/25 Anesthesia Stop Time: 11:15 Coding CPT Codes CPT Codes: ANESTH CS DELIVERY - 08725 ([id number]) P2 - PATIENT W/MILD SYST DISEASE, QZ - BANK VAULT CUSTODIAN SVC W/O MASSAGE OPERATOR BY
--- NOTE | 2025-02-04 11:22 | P.ANES_ITS ---
Anesthesia Charges Start Date/Time Anesthesia Start Date: 02/04/25 Anesthesia Start Time: 09:15 Stop Date/Time Anesthesia Stop Date: 02/04/25 Anesthesia Stop Time: 11:15 Coding CPT Codes CPT Codes: ANESTH CS DELIVERY - 53522 ([id number]) P2 - PATIENT W/MILD SYST DISEASE, QZ - SAWMILL TALLY CLERK SVC W/O RADIOSONDE SPECIALIST BY
--- NOTE | 2025-02-04 11:23 | W.PM.NB ---
Nerve Block Nerve Block Time Seen by Provider: 11:00 Date Seen: 02/04/25 Type of block requested by surgeon for post-operative analgesia: TAP Side: bilateral Time out performed: Yes Verification of patient name: Yes Verification of date of : Yes Site marking: not applicable Name of person performing procedure: Yasmeen Continuous monitoring Was continuous monitoring of O2 sat, B/P, quality assurance monitor final, recorded every 15 minutes?: Yes Procedure Checklist: sterile prep, needles and gloves Ultrasound guided. Images saved: Yes Medications given in 5ml increments after negative aspiration: Marcaine %: 0.25 mL: 30 Needle gauge: 20 and Exparel mL: 10 Patient tolerated procedure well: Yes Block Charges Block Charge (with Pro Fee): TAP Bilateral Use of Ultrasound Machine for Block: Yes- US Guidance/pain block
[2025-02-04] MEDS: LACTATED RINGERS 1000 ML 1,000 ML 125 ML IV (12:47)
--- NOTE | 2025-02-04 14:58 | PC.NURSE ---
At 14:50 the patient had two visitors come to see her. The visitors stated that patient did not know they were coming. Initially patient was hesitant to see visitors at this time, but agreed that they could wait in the waiting room. This RN brought visitors to the waiting room. Felicita Grewal, assisted living nursing director re-visited patient and asked if she wanted visitors turned away. Patient states that visitors are able to stay in the waiting room at this time and that she would contact them when she was ready to see them.
[2025-02-04] MEDS: ONDANSETRON 2 MG/ML inj 4 MG IV (15:42)
[2025-02-05] VITALS (9 sets, daily range): BP systolic 110–137; BP diastolic 68–84; PULSE 82–107; RESP 16–20; TEMP 36.5–37.2; O2SAT 95–100
[2025-02-05] MEDS: KETOROLAC 30 MG/ML inj IVP ×4 (00:07→18:14)
[2025-02-05 05:02] LABS: Hemoglobin* 11.4 gm/dL (12.0-16.0); Mean Corpuscular HGB Conc 35 gm/dL (32-36); Mean Corpuscular Hemoglobin 29 pg (26-34); Mean Corpuscular Volume 83 fL (80-100); Platelet Count* 157 K/uL (140-440); Red Blood Count 3.99 m/uL (4.00-5.20); White Blood Count* 8.68 K/uL (4.50-11.00)
[2025-02-05 05:22] LABS: Slide Review Reflex No
[2025-02-05 05:26] LABS: Alanine Aminotransferase* 16 U/L (4-35); Aspartate Amino Transferase* 33 U/L (12-35); Blood Urea Nitrogen* 13 mg/dL (5-24); Creatinine* 0.6 mg/dL (0.5-1.5); Est. Creatinine Clearance* 141.98; Estimated Glomerular Filt Rate 123 ml/min
[2025-02-05] MEDS: NIFEdipine ER 30 MG TAB PO (08:02)
--- NOTE | 2025-02-05 09:20 | PM.OBPNVD1 ---
OB - PN:Subj Subjective Date Seen: 02/05/25 Interval history: Eliz is a 29 yo G3 now P3-0-0-3 woman who is s/p repeat with bilateral salpingectomy and left ovarian cystectomy on 02/04 at 37 0/7 weeks in the setting of preeclampsia without severe features. She was delivered of a female , 7 lbs 4 oz. She had a 5 cm left ovarian cyst containing serous fluid which was removed at time of surgery. Blood pressures have been almost entirely normal since delivery history morning. She is prescribed nifedipine ER 30 mg daily at 0900. Narrative: She has some soreness, but is overall managing pain well. She is breast feeding with a little bit of difficulty. She denies any heavy bleeding. She did have some nausea, but this has resolved. She is tolerating solid foods and is passing flatus. OB - PN: Obj Exam Physical Exam: Vital signs: Temp Pulse Resp BP Pulse Ox O2 Del Method 98.4 F 96 16 132/84 99 Room Air 02/05/25 07:37 02/05/25 07:37 02/05/25 07:37 02/05/25 07:37 02/05/25 07:37 02/05/25 07:37 Narrative: General: Pleasant, no acute distress Heart: Regular rate and rhythm, no murmur or gallop Lungs: Clear to auscultation bilaterally Abdomen: Normoactive bowel sounds. Soft, nontender, fundus well below umbilicus, dressing intact with a small amount apparent old blood in 2 separate spots. Lower extremities: No edema or erythema OB - PN: Obj Data Labs Labs: Laboratory Results - last 24 hr 02/05/25 02/05/25 04:57 04:57 WBC 8.68 RBC 3.99 L Hgb 11.4 L Hct 33.0 MCV 83 MCH 29 MCHC 35 Plt Count 157 BUN 13 Creatinine 0.6 Estimated Creat Clear 141.98 Estimated GFR 123 AST Cancelled 33 ALT 16 OB - PN: A/P Delivery Assessment and Plan (1) Status post repeat low transverse section: Status: Acute Assessment and Plan: Appropriate post-op course (2) Status post bilateral salpingectomy: Status: Acute (3) Status post ovarian cystectomy: Problem details: Serous cyst x2, left, at the time of 3rd . Status: Acute (4) Pre-eclampsia: Status: Acute Assessment and Plan: Maintained on nifedipine ER 30 mg daily. Continue to monitor blood pressure throughout the day. Plan day: 1 Plan: routine care
[2025-02-05] MEDS: DOCUSATE SODIUM 100 MG CAPSULE PO (09:55)
[2025-02-05 14:59] LABS: Rapid Plasma Reagin (RPR) Non Reactive (Non Reactive)
[2025-02-06] VITALS (10 sets, daily range): BP systolic 129–156; BP diastolic 85–101; PULSE 66–99; RESP 16; TEMP 36.7–37.1; O2SAT 95–99
[2025-02-06] MEDS: NIFEdipine ER 30 MG TAB PO ×2 (10:26→18:36)
[2025-02-06] MEDS: DOCUSATE SODIUM 100 MG CAPSULE PO (10:26)
--- NOTE | 2025-02-06 11:26 | P.OBPN_ITS ---
OB - PN:Subj Subjective Date Seen: 02/06/25 Interval history: Eliz is a 29 yo G3 now P3-0-0-3 woman who is s/p repeat with bilateral salpingectomy and left ovarian cystectomy on 02/04 at 37 0/7 weeks in the setting of preeclampsia without severe features. She was delivered of a female , 7 lbs 4 oz. She had a 5 cm left ovarian cyst containing serous fluid which was removed at time of surgery. Blood pressures have been almost entirely normal since delivery history morning. She is prescribed nifedipine ER 30 mg daily at 0900. Narrative: Eliz is a 29 y.o. who was admitted to [facility] for a repeat with tubal ligation and left ovarian cyst removal.? She had an uncomplicated repeat c- section.? ? The patient feels well.? The pain is well controlled with current medications.? She has no new complaints.? She is breast feeding and reports things are not going well. Baby was recently started on an IV for low blood sugars. She is attempting at the time of my visit. ? the patient has done well.? Vitals have been stable, blood pressures running 130's/80's since delivery.? She has remained afebrile.? Has a good appetite, is tolerating a general diet.? She is voiding without difficulty.? She is passing gas and has not had a bowel movement.? She is ambulating and denies any dizziness.? Has Small amount of rubra lochia.? OB - PN: Obj Exam Physical Exam: Vital signs: Temp Pulse Resp BP Pulse Ox O2 Del Method 98.7 F 93 16 133/88 96 Room Air 02/06/25 06:02 02/06/25 10:43 02/06/25 10:43 02/06/25 10:43 02/06/25 10:43 02/06/25 10:43 Narrative: GENERAL APPEARANCE:? normal affect, alert, no distress MOOD:? appropriate CHEST:? clear to auscultation HEART:? regular rate and rhythm ABDOMEN:? soft, non-tender the uterine fundus is firm At Umbilicus, Midline and is appropriate for the stage of recovery. EXTREMITIES:? normal and trace edema Incision: Healing well, no surrounding erythema, abnormal induration or discharge OB - PN: Obj Data Labs Labs: Laboratory Results - last 24 hr 02/04/25 07:36 RPR Screen Non Reactive OB - PN: A/P Delivery Assessment and Plan (1) Status post repeat low transverse section: Status: Acute (2) Status post bilateral salpingectomy: Status: Acute (3) Status post ovarian cystectomy: Problem details: Serous cyst x2, left, at the time of 3rd . Status: Acute (4) Pre-eclampsia: Status: Acute (5) care and examination of lactating mother: Status: Acute Plan day: 2 Plan: routine care Comments: Assessment/Plan?G 3 P 3 status post uncomplicated repeat .? ?? 1.? Continue route PP cares? 2.? .? May see if desired? 3.? Anticipate discharge home tomorrow ? ?
[2025-02-07 00:08] VITALS: BP 139/89; PULSE 80
[2025-02-07 05:20] VITALS: BP 118/77; PULSE 78; RESP 16; O2SAT 98
--- NOTE | 2025-02-07 07:23 | P.DS_ITS ---
DS: Providers Provider Date Seen: 02/07/25 Date of admission: 02/04/25 07:11 Primary care physician: Not a Local Provider Admitting Clinician: Melody Perez MD Attending Physician on discharge: Rylee MILLARD Date of Discharge: 02/07/25 DS: Diagnosis Discharge Diagnosis (1) care and examination of lactating mother: Status: Acute (2) Status post ovarian cystectomy: Status: Acute Problem details: Serous cyst x2, left, at the time of 3rd . (3) Status post bilateral salpingectomy: Status: Acute (4) Status post repeat low transverse section: Status: Acute (5) Pre-eclampsia: Status: Acute Exam Narrative: Exam Narrative: GENERAL APPEARANCE:? normal affect, alert, no distress MOOD:? appropriate CHEST:? clear to auscultation HEART:? regular rate and rhythm ABDOMEN:? soft, the uterine fundus is 1 finger breadth below Umbilicus, Midline and is appropriate for the stage of recovery. EXTREMITIES:? normal and moderate edema, reflexes +2/4 with no clonus bilaterally. Incision: Clean, dry and intact without erythema or abnormal discharge Const: Vital Signs, click to edit/add: Vital Signs - 24 hr 02/06/25 08:35 02/06/25 12:48 02/06/25 13:03 Temperature 98.4 F Pulse Rate [Pulse Oximeter] 93 99 Respiratory Rate 16 16 Blood Pressure [Le ft Arm] 133/88 156/94 H 148/92 H Pulse Oximetry 96 98 Oxygen Delivery Me thod Room Air Room Air 02/06/25 14:00 02/06/25 15:03 02/06/25 18:22 Temperature 98.3 F Pulse Rate [Pulse Oximeter] 66 Respiratory Rate 16 Blood Pressure [Le ft Arm] 131/85 139/92 H 141/101 H Pulse Oximetry Oxygen Delivery Me thod 02/06/25 23:45 02/07/25 00:08 02/07/25 05:20 Temperature 98.1 F Pulse Rate [Pulse Oximeter] 86 80 78 Respiratory Rate 16 16 Blood Pressure [Le ft Arm] 155/98 H 139/89 118/77 Pulse Oximetry 99 98 Oxygen Delivery Me thod Room Air Room Air OB - DS: Summary Hospital Course Hospital Course: Eliz is a 29 y.o. G 3 now P 3003 who was admitted to [facility] for preeclampsia without severe features and a repeat with tubal ligation, and ovarian cystectomy.? She had a section that was uncomplicated. The patient feels well.? The pain is well controlled with current medications.? She has no new complaints.? She is breast feeding and reports things are going moderately well. the patient has done well.? Vitals have been stable, but with mild to moderate eleavations in BP. No TRAN, vision changes or RUQ pain..? She has remained afebrile.? Has a good appetite, is tolerating a general diet.? She is voiding without difficulty.? She is passing gas and has not had a bowel movement.?She is feeling like she is getting backed up and desires a dose of Miralax this morning. She is ambulating and denies any dizziness.? Has scant amount of rubra lochia. ? ?? Problems: elevated BPs now on Nifedipine ER 30mg PO BID, but we are increasing her to 60mg in the AM and 30 in the evening. ?? plan:? Discharge home with baby.?Continue Nifedipine ER 60mg in the AM and 30mg in the PM. Follow up in 2-3 days for an incision and BP check and 6 weeks.? , may see if needed? Hgb 11.4. ? Pre-E diagnosed by elevated BP greater than 4 hours apart? Labs WNL or stable with trending? Discharge home with BP cuff if does not already have one? Follow up in 3 days? Call for signs/symptoms of severe preeclampsia? Peripartum Data Infant delivery method: Repeat Section (with Tubal ligation and ovarian cystectomy) Episiotomy description: None Procedures: Procedures Operation Date: 02/04/25 09:00 Actual Procedure Side Surgeon p Repeat Low Transverse ; Bilateral Salpingectomy; Left Ovarian Cystectomy Melody Perez MD Operation Date: 02/14/25 07:15 <No data on this case meets the specified criteria> complications: other (Elevated BP, preeclampsia without severe features) Gender: Female Discharge Plan: Home Status at Discharge Overall status at discharge: patient is progressing back to baseline Time Spent with Patient Time attestation: Total time spent providing and/or coordinating discharge services: Time spent: Less than 30 minutes Discharge Plan Discharge Disposition: Home, Self-Care Date of Admission: 02/04/25 07:11 Attending Provider on Discharge: Dahlia Wick Primary Care Provider: Provider,Not a Local Condition: Stable Anticipated Discharge Date/Time: 02/07/25 12:00 Discharge Medications: New nifedipine 30 mg Tablet Extended Release 60 mg PO DAILY Qty: 30 0RF nifedipine 30 mg Tablet Extended Release 30 mg PO HS Qty: 60 0RF docusate sodium 100 mg Capsule 100 mg PO BID PRN (Reason: constipation) Qty: 60 0RF Continued DHA 200 mg capsule 200 mg PO DAILY Discontinued aspirin 81 mg tablet,chewable 81 mg PO QDAY Discharge Orders: Discharge Order (Routine); Ordered 02/07/25 Ordered By: Dahlia Wick Patient Education: OB /Breast Feeding Additional Instructions: Discharge instructions were reviewed with the patient including signs and symptoms of infection and home going medications Lifting Restrictions: 20 pounds for 6 weeks No not submerge incision under water X 2 weeks? Nothing vaginally for 6 weeks: no tampons or intercourse Do not drive while taking narcotic pain medication(s) Off Work or School for 8 weeks Symptoms to report to doctor: * Bleeding that saturates more than one pad per hour * Passing clots larger than the size of a golf ball * Pain not relieved by prescribed medication * Fever above 100.4 degrees Fahrenheit * A foul vaginal odor * Difficulty in emotions, mood, and functions * Thoughts of hurting yourself and/or * Painful, reddened area in your breast * Any drainage, redness, or tenderness in your IV/epidural site * Severe headache that doesn't improve after taking medications * Changes in vision, including temporary loss of vision, blurred vision, and/or light sensitivity * Upper abdominal pain (usually under ribs on the right side) * Decrease in urination or painful, frequent urinating * Chest pain * Shortness of breath * Tenderness or pain with redness and/swelling in the calf(s) of your leg [facility] for [facility] BP [facility]?02/10/2025 Call with BP greater than or equal to 160/110 3 Day visit: BP check, incision check, discuss feeding concerns, review control options and screen for anxiety/depression. 6-week visit for an annual exam. consultation services are available to all mothers and babies for the first year after delivery.? To make an appointment, please call [phone]. For pain control of perineum, breast and pelvic pain, take 600 mg Ibuprofen every 6 hours as needed by mouth or 1000 mg acetaminophen (Tylenol) every 6 hours by mouth as needed. You can alternate these so you are taking something every 3 hours as needed. A heating pad can also be used for your abdomen or breasts. You may also take docusate sodium up to twice daily to soften your stools and help to prevent constipation. You may wean off of it when your stools return to normal.? Activity Level: Activity as Tolerated and No strenuous activity Discharge Diet: Regular Follow Up Appointments: [facility] [Provider Group] Forms: MyHealth Info Instructions
[2025-02-07 07:50] VITALS: BP 150/102; PULSE 86; RESP 16; TEMP 36.8; O2SAT 98
[2025-02-07] MEDS: NIFEdipine ER 30 MG TAB 60 MG PO (08:12)
[2025-02-07] MEDS: DOCUSATE SODIUM 100 MG CAPSULE PO (08:12)
[2025-02-07] MEDS: polyethylene glycoL 3350 17 GM PACK PO (08:12)
[2025-02-07 10:19] VITALS: BP 141/88
[2025-02-07 12:15] VITALS: BP 145/89; PULSE 89; RESP 16; TEMP 36.9; O2SAT 97
[2025-02-07] MEDS: LABETALOL HCL 100 MG TABLET 200 MG PO (12:33)
== END 2025-02-07 16:45 | disposition home or self-care (01) | DRG 540 ==
PROVIDERS: Obstetrics & Gynecology; Admitting Provider Obstetrics & Gynecology; Visit Provider Obstetrics & Gynecology
PROC: 10D00Z1 Extraction of Products of Conception, Low, Open Approach (ICD-10-PCS; CPT 59514; principal; 2025-02-04 09:00)
DX: O14.04 Mild to moderate pre-eclampsia, complicating childbirth (principal); O34.211 Maternal care for low transverse scar from previous cesarean delivery; O34.83 Maternal care for other abnormalities of pelvic organs, third trimester; N83.202 Unspecified ovarian cyst, left side; Z30.2 Encounter for sterilization; G89.18 Other acute postprocedural pain; Z3A.37 37 weeks gestation of pregnancy; Z37.0 Single live birth
CPT/HCPCS: 01961; 36415; 64488; 76942; 82565; 82570; 84156; 84450; 84460; 84520; 85025; 85027; 86592; 86850; 86900; 86901; 88302; 88305; 88307; A4314; A9270; J0665; J0666; J0690; J1100; J1885; J2250; J2274; J2405; J2590; J3010; J7120